=== PATIENT | male | born 1955 | race Caucasian/White ===

== ENCOUNTER 2019-07-11 03:29 | Emergency (ER) | payer OTHER ==
[~2019-07-11] VITALS: Ht 180.3 cm; Wt 87.1 kg
[2019-07-11] MEDS ORDERED: METO50 PO (03:48)
[2019-07-11] MEDS ORDERED: CENTRUM SILVER1 EAC2 PO (03:49)
[2019-07-11] MEDS ORDERED: ASPIR 8181 MG PO (03:49)
[2019-07-11] MEDS ORDERED: Cleocin HCl300 MG PO (04:18)
[2019-07-11] MEDS ORDERED: Percocet 5-3251 EACH PO (04:18)
[2019-07-11] MEDS ORDERED: Prednisone20 MG PO (04:18)
== END 2019-07-11 04:30 | disposition home or self-care (01) ==
LOC: ER 03:29
DX: L03.211 Cellulitis of face (principal); I10 Essential (primary) hypertension; F17.210 Nicotine dependence, cigarettes, uncomplicated; Z79.899 Other long term (current) drug therapy; Z79.82 Long term (current) use of aspirin
CPT/HCPCS: 99283; A9270; J1100

== ENCOUNTER 2022-05-11 10:23 | Emergency (ER) | payer OTHER ==
[~2022-05-11] VITALS: Ht 180.3 cm; Wt 99.8 kg
[~2022-05-11 10:23] MED LIST: 1/2 NS 250ml250 ML; ACET325 PO; ALBU90OI INH; ANEFRIN; ASPIR 8181 MG PO; ATOR40TA PO; Amiodarone HCl200 MG PO; CHLO25B PO; Cleocin HCl300 MG PO; DILT180 PO; Flonase 0.05% N16 GM; MELATONIN5 M1 PO; METO50 PO; METO50ER PO; MULTI VITAMIN1 EACH PO; NICO21TP TOP; NITROGLYCERIN0.4 M3 SL; PANT40 PO; Percocet 5-3251 EACH PO; Prednisone20 MG PO; Prinivil10 MG PO; STIOLTO RESPIMAT4 G1 INH; TIOT18 INH; XARELTO20 MG PO
[2022-05-11 11:41] LABS: BASOPHILS ABSOLUTE AUTO 0.06 K/mm3 (0.00-0.23); BASOPHILS PERCENT AUTO 1 % (0-2); EOSINOPHILS ABSOLUTE AUTO 0.02 K/mm3 (0.00-0.68); EOSINOPHILS PERCENT AUTO 0 % (0-6); Hemoglobin 14.3 g/dL (13.5-17.5); IMMATURE GRAN ABSOLUTE AUTO 0.02 K/mm3 (0.00-0.10); IMMATURE GRAN PERCENT AUTO 0 % (0-1); LYMPHOCYTES ABSOLUTE AUTO 0.91 K/mm3 (0.84-5.20); LYMPHOCYTES PERCENT AUTO 16 % (21-46); MONOCYTES ABSOLUTE AUTO 0.51 K/mm3 (0.16-1.47); MONOCYTES PERCENT AUTO 9 % (4-13); Mean Corpuscular HGB 35.4 pg (26.0-34.0); Mean Corpuscular HGB Conc 34.9 g/dL (31.5-36.5); Mean Corpuscular Volume 102 fL (80-100); Mean Platelet Volume 10.4 fL (9.1-12.4); NEUTROPHILS ABSOLUTE AUTO 4.13 K/mm3 (1.96-9.15); NEUTROPHILS PERCENT AUTO 73 % (41-73); Platelet Count 165 K/mm3 (150-400); RDW Coefficient Variation 14.8 % (11.7-14.2); RDW Standard Deviation 55.8 fL (35.1-46.3); Red Blood Cell Count 4.04 M/mm3 (4.30-5.90); White Blood Cell Count 5.65 K/mm3 (4.00-11.30)
[2022-05-11 12:10] LABS: Albumin, Blood 3.4 g/dL (3.4-5.0); Albumin/Globulin Ratio 0.9 (0.8-1.8); Bilirubin, Total 0.9 mg/dL (0.1-1.0); Calcium, Blood 8.5 mg/dL (8.5-10.1); Creatinine, Blood 0.75 mg/dL (0.60-1.20); Globulin, Blood 3.6 g/dL (2.2-4.0); Potassium, Blood 3.5 mmol/L (3.5-5.5)
[2022-05-11 12:40] LABS: Influenza A, PCR NEGATIVE (NEGATIVE); Influenza B, PCR NEGATIVE (NEGATIVE); Resp Syncytial Virus, PCR NEGATIVE (NEGATIVE); SARS-Cov-2 (COVID-19) PCR, MMC NEGATIVE (NEGATIVE)
== END 2022-05-11 13:13 | disposition home or self-care (01) ==
LOC: ER 10:23
PROVIDERS: Emergency Medicine
DX: R19.7 Diarrhea, unspecified (principal); E86.1 Hypovolemia; I10 Essential (primary) hypertension; J44.9 Chronic obstructive pulmonary disease, unspecified; I48.91 Unspecified atrial fibrillation; I25.10 Atherosclerotic heart disease of native coronary artery without angina pectoris; I25.2 Old myocardial infarction; F17.210 Nicotine dependence, cigarettes, uncomplicated; Z20.822 Contact with and (suspected) exposure to COVID-19; Z79.899 Other long term (current) drug therapy; Z79.01 Long term (current) use of anticoagulants
CPT/HCPCS: 0241U; 36415; 80053; 83605; 83690; 83735; 85025; 99284; J7030

== ENCOUNTER 2022-10-01 13:49 | Emergency (ER) | payer OTHER ==
[~2022-10-01] VITALS: Ht 180.3 cm; Wt 82.1 kg
[2022-10-01 14:14] LABS: BASOPHILS ABSOLUTE AUTO 0.07 K/mm3 (0.00-0.23); BASOPHILS PERCENT AUTO 1 % (0-2); EOSINOPHILS PERCENT AUTO 2 % (0-6); Hematocrit 39.6 % (37.0-53.0); Hemoglobin 13.5 g/dL (13.5-17.5); IMMATURE GRAN ABSOLUTE AUTO 0.01 K/mm3 (0.00-0.10); IMMATURE GRAN PERCENT AUTO 0 % (0-1); LYMPHOCYTES ABSOLUTE AUTO 3.69 K/mm3 (0.84-5.20); LYMPHOCYTES PERCENT AUTO 40 % (21-46); MONOCYTES ABSOLUTE AUTO 0.61 K/mm3 (0.16-1.47); MONOCYTES PERCENT AUTO 7 % (4-13); Mean Corpuscular HGB Conc 34.1 g/dL (31.5-36.5); Mean Corpuscular Volume 97 fL (80-100); Mean Platelet Volume 9.8 fL (9.1-12.4); NEUTROPHILS ABSOLUTE AUTO 4.68 K/mm3 (1.96-9.15); NEUTROPHILS PERCENT AUTO 51 % (41-73); Platelet Count 298 K/mm3 (150-400); RDW Standard Deviation 53.7 fL (35.1-46.3); Red Blood Cell Count 4.09 M/mm3 (4.30-5.90); White Blood Cell Count 9.26 K/mm3 (4.00-11.30)
[2022-10-01 14:37] LABS: Albumin, Blood 3.2 g/dL (3.4-5.0); Albumin/Globulin Ratio 0.9 (0.8-1.8); Bilirubin, Total 0.4 mg/dL (0.1-1.0); Bun/Creatinine Ratio 7.1 (12.0-20.0); Calcium, Blood 8.6 mg/dL (8.5-10.1); Creatinine, Blood 0.7 mg/dL (0.60-1.20); Globulin, Blood 3.6 g/dL (2.2-4.0); Potassium, Blood 4.1 mmol/L (3.5-5.5); Total Protein, Blood 6.8 g/dL (6.4-8.2)
[2022-10-01] MEDS ORDERED: PRED20 PO (14:43)
== END 2022-10-01 14:55 | disposition home or self-care (01) ==
LOC: ER 13:49
PROVIDERS: Emergency Medicine
DX: J44.1 Chronic obstructive pulmonary disease with (acute) exacerbation (principal); I10 Essential (primary) hypertension; F17.210 Nicotine dependence, cigarettes, uncomplicated
CPT/HCPCS: 71046; 80053; 85025; 93005; 93010; 99284-25; J7512

== ENCOUNTER 2022-10-12 03:51 | Emergency (ER) | payer OTHER ==
[~2022-10-12] VITALS: Ht 177.8 cm; Wt 81.7 kg
[~2022-10-12 03:51] MED LIST changes: +PRED20 PO
[2022-10-12 04:06] LABS: BASOPHILS ABSOLUTE AUTO 0.06 K/mm3 (0.00-0.23); BASOPHILS PERCENT AUTO 1 % (0-2); EOSINOPHILS ABSOLUTE AUTO 0.27 K/mm3 (0.00-0.68); EOSINOPHILS PERCENT AUTO 5 % (0-6); IMMATURE GRAN PERCENT AUTO 0 % (0-1); LYMPHOCYTES ABSOLUTE AUTO 1.94 K/mm3 (0.84-5.20); LYMPHOCYTES PERCENT AUTO 34 % (21-46); MONOCYTES ABSOLUTE AUTO 0.71 K/mm3 (0.16-1.47); MONOCYTES PERCENT AUTO 13 % (4-13); Mean Corpuscular HGB 33.2 pg (26.0-34.0); Mean Corpuscular HGB Conc 35.9 g/dL (31.5-36.5); Mean Corpuscular Volume 92 fL (80-100); Mean Platelet Volume 12.1 fL (9.1-12.4); NEUTROPHILS ABSOLUTE AUTO 2.72 K/mm3 (1.96-9.15); NEUTROPHILS PERCENT AUTO 48 % (41-73); Platelet Count 350 K/mm3 (150-400); RDW Coefficient Variation 16.7 % (11.7-14.2); RDW Standard Deviation 56.2 fL (35.1-46.3); Red Blood Cell Count 3.68 M/mm3 (4.30-5.90)
[2022-10-12 04:44] LABS: Hemoglobin 12.2 g/dL (13.5-17.5)
[2022-10-12] MEDS ORDERED: Prednisone20 MG PO (06:02)
[2022-10-12] MEDS ORDERED: ALBU90OI INH (06:02)
[2022-10-12 06:11] LABS: Albumin, Blood 3.4 g/dL (3.4-5.0); Albumin/Globulin Ratio 0.9 (0.8-1.8); Bilirubin, Total 0.8 mg/dL (0.1-1.0); Bun/Creatinine Ratio 10.4 (12.0-20.0); Calcium, Blood 8.3 mg/dL (8.5-10.1); Creatinine, Blood 0.77 mg/dL (0.60-1.20); Globulin, Blood 3.6 g/dL (2.2-4.0); Potassium, Blood 4.1 mmol/L (3.5-5.5)
== END 2022-10-12 08:21 | disposition home or self-care (01) ==
LOC: ER 03:51
PROVIDERS: Emergency Medicine
DX: J44.1 Chronic obstructive pulmonary disease with (acute) exacerbation (principal); I10 Essential (primary) hypertension; I25.2 Old myocardial infarction; I25.10 Atherosclerotic heart disease of native coronary artery without angina pectoris; F17.210 Nicotine dependence, cigarettes, uncomplicated; Z79.899 Other long term (current) drug therapy; Z79.02 Long term (current) use of antithrombotics/antiplatelets; Z79.52 Long term (current) use of systemic steroids
CPT/HCPCS: 36415; 71045; 80053; 83605; 83880; 84484; 85025; 93005; 93010; 94640; 94664; 96374; 96375; 99285-25; J2405; J2930

== ENCOUNTER 2022-10-12 15:29 | Emergency (ER) | payer OTHER ==
[~2022-10-12] VITALS: Ht 177.8 cm; Wt 82.1 kg
== END 2022-10-12 17:32 | disposition left against medical advice (07) ==
LOC: ER 15:29
DX: R53.1 Weakness (principal); Z79.52 Long term (current) use of systemic steroids; Z79.899 Other long term (current) drug therapy; Z79.02 Long term (current) use of antithrombotics/antiplatelets; Z53.21 Procedure and treatment not carried out due to patient leaving prior to being seen by health care provider
CPT/HCPCS: 99281

== ENCOUNTER 2022-12-04 18:50 | Emergency (ER) | payer OTHER ==
[~2022-12-04] VITALS: Ht 177.8 cm; Wt 86.2 kg
[2022-12-04 19:34] LABS: Source, Urine Clean Catch
[2022-12-04 19:35] LABS: BASOPHILS ABSOLUTE AUTO 0.09 K/mm3 (0.00-0.23); BASOPHILS PERCENT AUTO 1 % (0-2); EOSINOPHILS ABSOLUTE AUTO 0.05 K/mm3 (0.00-0.68); EOSINOPHILS PERCENT AUTO 1 % (0-6); Hematocrit 41.4 % (37.0-53.0); Hemoglobin 14.5 g/dL (13.5-17.5); IMMATURE GRAN ABSOLUTE AUTO 0.02 K/mm3 (0.00-0.10); IMMATURE GRAN PERCENT AUTO 0 % (0-1); LYMPHOCYTES ABSOLUTE AUTO 1.45 K/mm3 (0.84-5.20); LYMPHOCYTES PERCENT AUTO 22 % (21-46); MONOCYTES PERCENT AUTO 9 % (4-13); Mean Corpuscular HGB 31.8 pg (26.0-34.0); Mean Corpuscular Volume 91 fL (80-100); Mean Platelet Volume 9.4 fL (9.1-12.4); NEUTROPHILS PERCENT AUTO 67 % (41-73); Platelet Count 196 K/mm3 (150-400); RDW Coefficient Variation 20.2 % (11.7-14.2); RDW Standard Deviation 66.4 fL (35.1-46.3); Red Blood Cell Count 4.56 M/mm3 (4.30-5.90); White Blood Cell Count 6.71 K/mm3 (4.00-11.30)
[2022-12-04 19:38] LABS: Appearance, Urine Clear (Clear); Bilirubin, Urine Neg (Neg); Blood, Urine Neg (Neg); Color, Urine Yellow (P-Yellow); Glucose Qualitative, Urine Neg (Neg); Ketones, Urine Neg (Neg); Leukocyte Esterase, Urine Neg (Neg); Nitrite, Urine Neg (Neg); Protein, Urine Neg (Neg); Specific Gravity, Urine 1.005 (1.003-1.022); Urobilinogen, Urine NORM (Normal); pH, Urine 6.5 (5.0-8.0)
[2022-12-04 20:01] LABS: Albumin, Blood 3.5 g/dL (3.4-5.0); Albumin/Globulin Ratio 0.9 (0.8-1.8); Bilirubin, Total 0.6 mg/dL (0.1-1.0); Bun/Creatinine Ratio 12.8 (12.0-20.0); Calcium, Blood 8.5 mg/dL (8.5-10.1); Creatinine, Blood 0.78 mg/dL (0.60-1.20); Globulin, Blood 3.8 g/dL (2.2-4.0); Potassium, Blood 4.9 mmol/L (3.5-5.5); Total Protein, Blood 7.3 g/dL (6.4-8.2)
[2022-12-04 21:09] LABS: Magnesium, Blood 2.1 mg/dL (1.6-2.4)
[2022-12-04 21:53] LABS: Thyroid Stimulating Hormone 1.63 uIU/mL (0.360-4.800)
[2022-12-04 22:14] VITALS: BP 104/79
== END 2022-12-04 22:14 | disposition home or self-care (01) ==
LOC: ER 18:50
PROVIDERS: Student in an Organized Health Care Education/Training Program
DX: R29.898 Other symptoms and signs involving the musculoskeletal system (principal); Z79.899 Other long term (current) drug therapy; Z79.52 Long term (current) use of systemic steroids; J44.9 Chronic obstructive pulmonary disease, unspecified; I10 Essential (primary) hypertension; I48.91 Unspecified atrial fibrillation; I25.10 Atherosclerotic heart disease of native coronary artery without angina pectoris; I25.2 Old myocardial infarction; F17.210 Nicotine dependence, cigarettes, uncomplicated
CPT/HCPCS: 71046; 80053; 81003; 83735; 83880; 84443; 84484; 85025; 93005; 93010; 99285-25

== ENCOUNTER 2023-05-22 23:38 | Emergency (ER) | payer OTHER ==
[~2023-05-22] VITALS: Ht 177.8 cm; Wt 81.7 kg
[~2023-05-22 23:38] MED LIST changes: +B-1100 M1 PO; +EFUDEX40 GM; +FLUOROURACIL 5%; +FOLI1 PO; +FOLIC ACID; +ONDA4ODT SL; +POTCHL20ER PO; +STIOLTO RESPIMAT4 G1; +Triamcinolone A15 G3 TOP
[2023-05-23 00:29] LABS: BASOPHILS ABSOLUTE AUTO 0.08 K/mm3 (0.00-0.23); BASOPHILS PERCENT AUTO 1 % (0-2); EOSINOPHILS ABSOLUTE AUTO 0.01 K/mm3 (0.00-0.68); EOSINOPHILS PERCENT AUTO 0 % (0-6); Hematocrit 39.7 % (37.0-53.0); IMMATURE GRAN ABSOLUTE AUTO 0.02 K/mm3 (0.00-0.10); IMMATURE GRAN PERCENT AUTO 0 % (0-1); LYMPHOCYTES ABSOLUTE AUTO 0.79 K/mm3 (0.84-5.20); LYMPHOCYTES PERCENT AUTO 8 % (21-46); MONOCYTES ABSOLUTE AUTO 0.52 K/mm3 (0.16-1.47); MONOCYTES PERCENT AUTO 6 % (4-13); Mean Corpuscular HGB 34.3 pg (26.0-34.0); Mean Corpuscular HGB Conc 35.3 g/dL (31.5-36.5); Mean Corpuscular Volume 97 fL (80-100); Mean Platelet Volume 10.6 fL (9.1-12.4); NEUTROPHILS ABSOLUTE AUTO 8.08 K/mm3 (1.96-9.15); NEUTROPHILS PERCENT AUTO 85 % (41-73); Platelet Count 220 K/mm3 (150-400); RDW Coefficient Variation 18.5 % (11.7-14.2); RDW Standard Deviation 64.8 fL (35.1-46.3); Red Blood Cell Count 4.08 M/mm3 (4.30-5.90)
[2023-05-23 01:50] LABS: Albumin, Blood 3.1 g/dL (3.4-5.0); Albumin/Globulin Ratio 0.8 (0.8-1.8); Bilirubin, Total 0.9 mg/dL (0.1-1.0); Bun/Creatinine Ratio 6.5 (12.0-20.0); Calcium, Blood 8.5 mg/dL (8.5-10.1); Creatinine, Blood 0.77 mg/dL (0.60-1.20); Globulin, Blood 3.9 g/dL (2.2-4.0); Potassium, Blood 3.8 mmol/L (3.5-5.5)
[2023-05-23] MEDS ORDERED: CHLO25 PO (05:54)
[2023-05-23 06:53] VITALS: BP 141/85
== END 2023-05-23 07:38 | disposition home or self-care (01) ==
LOC: ER 23:38
PROVIDERS: Student in an Organized Health Care Education/Training Program
DX: F10.90 Alcohol use, unspecified, uncomplicated (principal); E86.0 Dehydration; I10 Essential (primary) hypertension; J44.9 Chronic obstructive pulmonary disease, unspecified; I48.91 Unspecified atrial fibrillation; I25.2 Old myocardial infarction; I25.10 Atherosclerotic heart disease of native coronary artery without angina pectoris; F17.210 Nicotine dependence, cigarettes, uncomplicated
CPT/HCPCS: 71046; 71275; 75635; 80053; 83690; 84484; 85025; 93005; 93010; 96361; 96374-59; 99285-25; J2405; J7030; Q9967

== ENCOUNTER 2023-11-15 06:22 | Day surgery (SDC) | payer OTHER ==
[2023-11-15] VITALS (10 sets, daily range): BP systolic 127–164; BP diastolic 61–84
[~2023-11-15] VITALS: Ht 177.8 cm; Wt 83.9 kg
[~2023-11-15 06:22] MED LIST changes: +CHLO25 PO; +ELIQUIS5 M2 PO; +MORP15ER PO
[2023-11-15] MEDS ORDERED: NS 500 ML IV ONE (07:58)
[2023-11-15] MEDS ORDERED: Nitroglycerin 2 MG/20 ML BTL ONE (07:59)
[2023-11-15] MEDS ORDERED: Heparin Sodium 1000 Units/ML 10ML MDV ONE (07:59)
[2023-11-15] MEDS ORDERED: NS 1,000 ML IV ONE ×2 (07:59→08:35)
[2023-11-15] MEDS ORDERED: FentaNYL Citrate 50 MCG/ML 2 ML Injection ONE ×2 (08:34→09:28)
[2023-11-15] MEDS ORDERED: Midazolam HCl 1MG / ML 2ML Vial ONE ×2 (08:34→09:28)
--- NOTE | 2023-11-15 10:57 | NUR ---
pt resting in bed. groin site soft and non-tender per pt. no bleeding noted. pt given water per request
--- NOTE | 2023-11-15 11:58 | NUR ---
PT GIVEN FOOD. PT SITTING UP AT 30 DEGREES. GROIN SITE SOFT AND NON-TENDER. NO BLEEDING NOTED.
--- NOTE | 2023-11-15 12:15 | NUR ---
HOB ELEVATED 30 DEGREES. L GROIN SITE C/D/I SOFT/NONTENDER. NO EVIDENCE OF BLEEDING. VSS ON RA. PATIENT DENYING ANY PAIN. PATIENT TOLERATING PO INTAKE WELL
--- NOTE | 2023-11-15 13:17 | NUR ---
PT BONY VAZQUEZ INSTRUCTIONS AND VERBALIZED UNDERSTANDING. IV OUT. PT CHANGED. GROIN SITE SOFT AND NON-TNEDER. NO BLEEDING NOTED. PT TAKEN TO LBY VIA WC. TO BE TAKEN HOME BY FAMILY.
== END 2023-11-15 14:27 | disposition home or self-care (01) ==
LOC: MHTC 06:22
DX: I70.221 Atherosclerosis of native arteries of extremities with rest pain, right leg (principal); I25.10 Atherosclerotic heart disease of native coronary artery without angina pectoris; I10 Essential (primary) hypertension; E78.5 Hyperlipidemia, unspecified; I48.0 Paroxysmal atrial fibrillation; J44.9 Chronic obstructive pulmonary disease, unspecified; F17.210 Nicotine dependence, cigarettes, uncomplicated; Z79.01 Long term (current) use of anticoagulants; Z79.899 Other long term (current) drug therapy
CPT/HCPCS: 37227; 75716; 75774; 76937; 99152; 99153; C1714; C1725; C1760; C1769; C1874; C1887; C1894; J1644; J2250; J3010; J7030; J7050; Q9967

== ENCOUNTER 2024-02-12 11:08 | Observation (INO) | payer OTHER ==
[~2024-02-12] VITALS: Ht 177.8 cm; Wt 80.7 kg
[~2024-02-12 11:08] MED LIST changes: -FOLIC ACID
[2024-02-12 11:57] LABS: BASOPHILS ABSOLUTE AUTO 0.07 K/mm3 (0.00-0.23); BASOPHILS PERCENT AUTO 1 % (0-2); EOSINOPHILS PERCENT AUTO 0 % (0-6); Hematocrit 35.4 % (37.0-53.0); Hemoglobin 11.9 g/dL (13.5-17.5); IMMATURE GRAN ABSOLUTE AUTO 0.05 K/mm3 (0.00-0.10); IMMATURE GRAN PERCENT AUTO 1 % (0-1); LYMPHOCYTES ABSOLUTE AUTO 0.64 K/mm3 (0.84-5.20); LYMPHOCYTES PERCENT AUTO 6 % (21-46); MONOCYTES ABSOLUTE AUTO 0.58 K/mm3 (0.16-1.47); MONOCYTES PERCENT AUTO 6 % (4-13); Mean Corpuscular HGB Conc 33.6 g/dL (31.5-36.5); Mean Corpuscular Volume 104 fL (80-100); Mean Platelet Volume 9.9 fL (9.1-12.4); NEUTROPHILS ABSOLUTE AUTO 8.68 K/mm3 (1.96-9.15); NEUTROPHILS PERCENT AUTO 87 % (41-73); Platelet Count 248 K/mm3 (150-400); RDW Standard Deviation 95.7 fL (35.1-46.3); White Blood Cell Count 10.02 K/mm3 (4.00-11.30)
[2024-02-12 12:07] LABS: Albumin/Globulin Ratio 0.8 (0.8-1.8); Bun/Creatinine Ratio 6.8 (12.0-20.0); Calcium, Blood 8.2 mg/dL (8.5-10.1); Creatinine, Blood 0.59 mg/dL (0.60-1.20); Globulin, Blood 3.7 g/dL (2.2-4.0); Potassium, Blood 3.8 mmol/L (3.5-5.5); Total Protein, Blood 6.7 g/dL (6.4-8.2)
[2024-02-12 12:11] LABS: International Normalized Ratio 1.04; Prothrombin Time Results 11.1 Sec (9.7-11.5)
[2024-02-12] MEDS ORDERED: NS 1,000 ML IV SCH (12:15)
[2024-02-12] MEDS ORDERED: Pantoprazole Sodium 40 MG Injection IV ONE (12:15)
[2024-02-12] MEDS ORDERED: Pantoprazole Sodium 40 MG in NS 50 ML IV SCH (12:15)
[2024-02-12 16:44] VITALS: BP 141/81
[2024-02-12] MEDS ORDERED: LORazepam 2 MG/ML 1ML Injection IM PRN (17:05)
[2024-02-12] MEDS ORDERED: LORazepam 2 MG/ML 1ML Injection IV PRN (17:05)
[2024-02-12] MEDS ORDERED: Acetaminophen 325 MG TABLET PO PRN (17:10)
[2024-02-12] MEDS ORDERED: LORazepam 1 MG Tab PO PRN (17:10)
[2024-02-12] MEDS ORDERED: ChlordiazePOXIDE 25 MG Cap PO PRN ×2 (17:10)
--- NOTE | 2024-02-12 17:33 | NUR ---
ADMIT PT ADMITTED TO FLOOR. ORIENTED TO ROOM. PT RELAYED HE IS AN ALCOHOLIC AND WILL NEED HELP WITH WITHDRAWL. PT ALSO REQUESTING A NICOTINE PATCH AND TYLENOL. THIS WAS RELAYED TO DR. JENNINGS. PT HAD TWO BMS SINCE ADMIT. BOTH CLEAR AND LOOSE. DR. JENNINGS NOTIFIED AND GI PANEL ORDERED. SAMPLE SENT TO LAB. TELE IN PLACE. PROTONIX GTT RUNNING. PT RESTING IN BED CALL LIGHT IN REACH.
[2024-02-12 17:48] LABS: Hemoglobin 11.7 g/dL (13.5-17.5)
[2024-02-12 19:07] LABS: Adenovirus F 40/41 Not Detected (NOT DETECT); Astrovirus Not Detected (NOT DETECT); Campylobacter Sp Not Detected (NOT DETECT); Cryptosporidium Not Detected (NOT DETECT); Cyclospora Cayetanensis Not Detected (NOT DETECT); E. Coli O157 Not Detected (NOT DETECT); Entamoeba Histolytica Not Detected (NOT DETECT); Enteroaggregative E. coli-EAEC Not Detected (NOT DETECT); Enteropathogenic E. coli-EPEC Not Detected (NOT DETECT); Enterotoxigenic E. coli-ETEC Not Detected (NOT DETECT); Giardia Lamblia Not Detected (NOT DETECT); Norovirus GI/GII Not Detected (NOT DETECT); Plesiomonas Shigelloides Not Detected (NOT DETECT); Rotavirus A Not Detected (NOT DETECT); Salmonella Sp Not Detected (NOT DETECT); Sapovirus Not Detected (NOT DETECT); Shiga Toxin-prod E. coli-STEC Not Detected (NOT DETECT); Shigella/Enteroin E. coli-EIEC Not Detected (NOT DETECT); Vibrio Cholerae Not Detected (NOT DETECT); Vibrio Sp Not Detected (NOT DETECT); Yersinia Enterocolitica Not Detected (NOT DETECT)
[2024-02-12 19:09] VITALS: BP 117/64
[2024-02-12] MEDS ORDERED: Tiotropium Bromide 2.5 MCG/ACT MIST INHAL (10 ACT/4 GM) INH SCH (20:30)
[2024-02-12] MEDS ORDERED: Albuterol 2.5 MG/3 ML VIAL INH PRN (20:30)
[2024-02-12 21:48] LABS: Hematocrit 31.8 % (37.0-53.0); Hemoglobin 10.7 g/dL (13.5-17.5)
[2024-02-13 02:07] VITALS: BP 109/66
--- NOTE | 2024-02-13 02:59 | NUR ---
SHIFT SUMMARY PT. IS A&O X4, ABLE TO MAKE HIS NEEDS KNOWN, COOP WITH CARE. @HS CIWA SCORE OF 7 R/T TREMORS (UE'S), AGITATION, SENSITIVITY TO LIGHTS AND NOISE.PER PREVIOUS SHIFT NURSE REPORT, LAST DRINK OF ALCOHOL WAS 02/12/24.PT.REPORTS CONSUMING 5-6 DRINKS OF WHISKEY DAILY. @0100, CIWA SCORE OF 9 R/T AGITATION, MODERATE TREMORS, SLIGHT ANXIETY, AND SENSITIVITY TO LIGHTS AND NOISE.1GM ATIVAN PO ADMINISTERED ORDERED. PT. USES BEDSIDE COMMODE, MULTIPLE LOOSE STOOLS DURING THIS SHIFT, DARK BROWN, NO COFFEE GROUND APPEARANCE. NO N/V DURING THIS SHIFT. TYLENOL PRN ADMINISTERED ORDERED FOR 4/10 RIGHT LEG PAIN. PROTONIX DRIP INFUSING ORDERED. NOTED NON PRODUCTIVE COUGH, LL'S COARSE PER AUSCULTATION. PT. IS ON RA SAT'S95%. PT DENIES SOB. AGITATION LESS AFTER PO ATIVAN 1MG WAS EFFECTIVE. NO ACUTE EVENTS/DISTRESS DURING THIS SHIFT. WILL HANDOFF TO THE INCOMING SHIFT NURSE.CALL LIGHT IN REACH.
[2024-02-13 04:36] LABS: Hemoglobin 10.8 g/dL (13.5-17.5)
[2024-02-13 07:57] VITALS: BP 108/69
[2024-02-13] MEDS ORDERED: Thiamine HCl 100 MG in NS 50 ML IV SCH (09:00)
[2024-02-13] MEDS ORDERED: Folic Acid 1 MG in NS 50 ML IV SCH (09:00)
[2024-02-13] MEDS ORDERED: Nicotine 21 MG PATCH TOP SCH (09:00)
[2024-02-13 10:11] LABS: BASOPHILS ABSOLUTE AUTO 0.05 K/mm3 (0.00-0.23); BASOPHILS PERCENT AUTO 1 % (0-2); EOSINOPHILS ABSOLUTE AUTO 0.17 K/mm3 (0.00-0.68); EOSINOPHILS PERCENT AUTO 2 % (0-6); Hematocrit 31.6 % (37.0-53.0); Hemoglobin 10.6 g/dL (13.5-17.5); IMMATURE GRAN ABSOLUTE AUTO 0.02 K/mm3 (0.00-0.10); IMMATURE GRAN PERCENT AUTO 0 % (0-1); LYMPHOCYTES ABSOLUTE AUTO 0.91 K/mm3 (0.84-5.20); LYMPHOCYTES PERCENT AUTO 9 % (21-46); MONOCYTES ABSOLUTE AUTO 0.53 K/mm3 (0.16-1.47); MONOCYTES PERCENT AUTO 6 % (4-13); Mean Corpuscular HGB 35.6 pg (26.0-34.0); Mean Corpuscular HGB Conc 33.5 g/dL (31.5-36.5); Mean Corpuscular Volume 106 fL (80-100); Mean Platelet Volume 10.1 fL (9.1-12.4); NEUTROPHILS ABSOLUTE AUTO 7.99 K/mm3 (1.96-9.15); NEUTROPHILS PERCENT AUTO 83 % (41-73); Platelet Count 197 K/mm3 (150-400); RDW Coefficient Variation 25.2 % (11.7-14.2); RDW Standard Deviation 94.7 fL (35.1-46.3); Red Blood Cell Count 2.98 M/mm3 (4.30-5.90); White Blood Cell Count 9.67 K/mm3 (4.00-11.30)
[2024-02-13 10:29] LABS: Bun/Creatinine Ratio 4.4 (12.0-20.0); Calcium, Blood 7.8 mg/dL (8.5-10.1); Creatinine, Blood 0.68 mg/dL (0.60-1.20); Potassium, Blood 3.3 mmol/L (3.5-5.5)
[2024-02-13 15:27] VITALS: BP 134/75
--- NOTE | 2024-02-13 17:37 | NUR ---
PATIENT D/C'D TO HOME WITH FAMILY. D/C INSTRUCTIONS AND EDUCATION DISCUSSED WITH PATIENT AND COPY PROVIDED. NO NEW MEDICATIONS ORDERED. HARD SCRIPT GIVEN FOR H/H ON 02/14. PATIENT [facility] FOLLOW UP WITH [facility] ADVISED. DENIES ANY FURTHER QUESTIONS OR CONCERNS.
[2024-02-21] MEDS ORDERED: ELIQUIS5 M2 PO (09:00)
== END 2024-02-13 17:38 | disposition home or self-care (01) ==
LOC: ER 11:08 → MEDS 11:09
PROVIDERS: Emergency Medicine; ADMIT Family Medicine
DX: K92.2 Gastrointestinal hemorrhage, unspecified (principal); F10.90 Alcohol use, unspecified, uncomplicated; F43.10 Post-traumatic stress disorder, unspecified; J44.9 Chronic obstructive pulmonary disease, unspecified; I25.2 Old myocardial infarction; I25.10 Atherosclerotic heart disease of native coronary artery without angina pectoris; I10 Essential (primary) hypertension; I48.91 Unspecified atrial fibrillation; Z79.01 Long term (current) use of anticoagulants; Z79.899 Other long term (current) drug therapy
CPT/HCPCS: 36415; 80048; 80053; 82607; 82746; 85014; 85018; 85025; 85610; 85730; 86850; 86900; 86901; 87507; 93005; 93010; 94640; 94664; 94760; 96361; 96365; 96366; 96367; 96375; 96376; 99285-25; A9270; C9113; G0378; J3411; J7030

== ENCOUNTER 2024-02-17 18:56 | Emergency (ER) | payer OTHER ==
[~2024-02-17] VITALS: Ht 177.8 cm; Wt 79.4 kg
[2024-02-17] MEDS ORDERED: Lactated Ringer's 1,000 ML IV ONE (19:25)
[2024-02-17] MEDS ORDERED: Ondansetron HCl 2 MG / ML 2ML Vial IV ONE (19:25)
[2024-02-17] MEDS ORDERED: MethylPREDNISolone Sod Succ 125 MG Vial IV ONE (19:25)
[2024-02-17] MEDS ORDERED: Ipratropium/Albuterol SulF 2.5-0.5MG/3 ML Amp INH ONE (19:25)
[2024-02-17 19:52] LABS: BASOPHILS ABSOLUTE AUTO 0.04 K/mm3 (0.00-0.23); BASOPHILS PERCENT AUTO 0 % (0-2); EOSINOPHILS ABSOLUTE AUTO 0.02 K/mm3 (0.00-0.68); EOSINOPHILS PERCENT AUTO 0 % (0-6); Hematocrit 36.2 % (37.0-53.0); Hemoglobin 12.3 g/dL (13.5-17.5); IMMATURE GRAN PERCENT AUTO 1 % (0-1); LYMPHOCYTES ABSOLUTE AUTO 0.94 K/mm3 (0.84-5.20); LYMPHOCYTES PERCENT AUTO 9 % (21-46); MONOCYTES ABSOLUTE AUTO 0.85 K/mm3 (0.16-1.47); MONOCYTES PERCENT AUTO 8 % (4-13); Mean Corpuscular HGB 35.5 pg (26.0-34.0); Mean Corpuscular Volume 105 fL (80-100); NEUTROPHILS ABSOLUTE AUTO 9.01 K/mm3 (1.96-9.15); NEUTROPHILS PERCENT AUTO 82 % (41-73); RDW Coefficient Variation 24.1 % (11.7-14.2); RDW Standard Deviation 92.5 fL (35.1-46.3); Red Blood Cell Count 3.46 M/mm3 (4.30-5.90); White Blood Cell Count 10.96 K/mm3 (4.00-11.30)
[2024-02-17 20:04] LABS: Platelet Count 235 K/mm3 (150-400)
[2024-02-17 20:06] LABS: Alanine Aminotransfer (ALT/SGP 67 U/L (12-78); Albumin, Blood 2.9 g/dL (3.4-5.0); Albumin/Globulin Ratio 0.7 (0.8-1.8); Alk Phos 223 U/L (50-136); Anion Gap 13 mmol/L (3-11); Aspartate Aminotrans (AST/SGOT 99 U/L (12-37); Bilirubin, Total 0.9 mg/dL (0.1-1.0); Blood Urea Nitrogen 3 mg/dL (8-24); Bun/Creatinine Ratio 5.4 (12.0-20.0); CO2, Blood 24 mmol/L (21-32); Chloride, Blood 104 mmol/L (98-108); Creatinine, Blood 0.56 mg/dL (0.60-1.20); Globulin, Blood 4.1 g/dL (2.2-4.0); Glomerular Filtration Rate 107 (60-); Glucose, Blood 126 mg/dL (70-99); Sodium, Blood 136 mmol/L (136-145)
[2024-02-17 20:14] LABS: Influenza A, PCR NEGATIVE (NEGATIVE); Influenza B, PCR NEGATIVE (NEGATIVE); Resp Syncytial Virus, PCR NEGATIVE (NEGATIVE); SARS-Cov-2 (COVID-19) PCR, MMC NEGATIVE (NEGATIVE)
[2024-02-17 20:22] LABS: Ethanol (Alcohol), Blood, Med <3 mg/dL; Magnesium, Blood 1.7 mg/dL (1.6-2.4)
[2024-02-17 22:30] VITALS: BP 134/74
[2024-02-17] MEDS ORDERED: AZIT250 PO (22:59)
[2024-02-17] MEDS ORDERED: PROM25 PO (22:59)
[2024-02-17] MEDS ORDERED: METPRE4DP PO (22:59)
[2024-02-17] MEDS ORDERED: RX Prepack Albuterol 1 PREPACK/6.7 GM INH UD ONE (23:00)
[2024-02-17] MEDS ORDERED: Azithromycin 250 MG Tab PO ONE (23:00)
== END 2024-02-17 23:35 | disposition home or self-care (01) ==
LOC: ER 18:56
PROVIDERS: Emergency Medicine
DX: J44.1 Chronic obstructive pulmonary disease with (acute) exacerbation (principal); J20.9 Acute bronchitis, unspecified; J44.0 Chronic obstructive pulmonary disease with (acute) lower respiratory infection; Z11.52 Encounter for screening for COVID-19
CPT/HCPCS: 0241U; 71046; 80053; 83690; 83735; 84484; 85025; 94640; 94664; A9270; J2405; J2919; J7120

== ENCOUNTER 2024-02-21 08:37 | Day surgery (SDC) | payer OTHER ==
[~2024-02-21] VITALS: Ht 177.8 cm; Wt 75.7 kg
[~2024-02-21 08:37] MED LIST changes: +AZIT250 PO; +Balanced Salt Epinephrine Irrigation Solution 500 mL IR SCH; +Lidocaine HCl/Pf 1% 5 ML VIAL XX SCH; +METPRE4DP PO; +Moxifloxacin HCL 0.5 MG/0.1 ML 0.4MLSYR LEFTEYE SCH; +NS 500 ML IV ONE; +PHENYLEPHRINE\\TROPICAMIDE\\TETRACAINE OPHTHALMIC DILATING SOLN LEFTEYE PRN; +PROM25 PO; +Povidone-Iodine 450 DROP/30 ML Solution LEFTEYE SCH; +Triamcinolone Inj Susp 40 MG / ML 1ML Vial INJ SCH
[2024-02-21] MEDS ORDERED: NS 500 ML IV ONE (09:02)
--- NOTE | 2024-02-21 09:23 | NUR ---
02/21/[address] HOLLINS AWARE OF RECENT ER VISIT WITH COPD EXACERBATION AND BRONCHITIS, PT CURRENTLY ON ANTIBIOTICS, ALMOST DONE WITH THEM, STILL HAS A COUGH BUT NO RECENT FEVER.
[2024-02-21] MEDS ORDERED: FentaNYL Citrate 50 MCG/ML 2 ML Injection ONE (09:27)
[2024-02-21] MEDS ORDERED: Midazolam HCl 1MG / ML 2ML Vial ONE (09:27)
[2024-02-21 10:02] VITALS: BP 149/86
== END 2024-02-21 10:15 | disposition home or self-care (01) ==
LOC: ORSCSDS 08:37
PROVIDERS: Ophthalmology
PROC: 08RK3JZ Replacement of Left Lens with Synthetic Substitute, Percutaneous Approach (ICD-10-PCS; principal; 2024-02-21 10:00)
DX: H25.12 Age-related nuclear cataract, left eye (principal); Z96.1 Presence of intraocular lens; I10 Essential (primary) hypertension; I48.91 Unspecified atrial fibrillation; I73.9 Peripheral vascular disease, unspecified; Z79.01 Long term (current) use of anticoagulants; Z79.899 Other long term (current) drug therapy; J44.9 Chronic obstructive pulmonary disease, unspecified; K76.0 Fatty (change of) liver, not elsewhere classified
CPT/HCPCS: J2250; J3010; J7040; V2632

== ENCOUNTER 2024-03-12 22:48 | Inpatient (IN) | payer OTHER ==
[~2024-03-12] VITALS: Ht 177.8 cm; Wt 81.5 kg
[~2024-03-12 22:48] MED LIST changes: -Balanced Salt Epinephrine Irrigation Solution 500 mL IR SCH; -Lidocaine HCl/Pf 1% 5 ML VIAL XX SCH; -Moxifloxacin HCL 0.5 MG/0.1 ML 0.4MLSYR LEFTEYE SCH; -NS 500 ML IV ONE; -PHENYLEPHRINE\\TROPICAMIDE\\TETRACAINE OPHTHALMIC DILATING SOLN LEFTEYE PRN; -Povidone-Iodine 450 DROP/30 ML Solution LEFTEYE SCH; -STIOLTO RESPIMAT4 G1; -Triamcinolone Inj Susp 40 MG / ML 1ML Vial INJ SCH
[2024-03-12 23:23] LABS: BASOPHILS ABSOLUTE AUTO 0.04 K/mm3 (0.00-0.23); BASOPHILS PERCENT AUTO 0 % (0-2); EOSINOPHILS PERCENT AUTO 1 % (0-6); Hematocrit 32.5 % (37.0-53.0); Hemoglobin 10.7 g/dL (13.5-17.5); IMMATURE GRAN ABSOLUTE AUTO 0.09 K/mm3 (0.00-0.10); IMMATURE GRAN PERCENT AUTO 1 % (0-1); LYMPHOCYTES ABSOLUTE AUTO 2.09 K/mm3 (0.84-5.20); LYMPHOCYTES PERCENT AUTO 12 % (21-46); MONOCYTES ABSOLUTE AUTO 0.89 K/mm3 (0.16-1.47); MONOCYTES PERCENT AUTO 5 % (4-13); Mean Corpuscular HGB Conc 32.9 g/dL (31.5-36.5); Mean Corpuscular Volume 103 fL (80-100); Mean Platelet Volume 9.3 fL (9.1-12.4); NEUTROPHILS ABSOLUTE AUTO 14.39 K/mm3 (1.96-9.15); NEUTROPHILS PERCENT AUTO 82 % (41-73); NRBC ABSOLUTE 0.04 K/mm3 (0.00-0.02); NRBC Auto 0.2 /100 WBC (0.0-0.2); Platelet Count 286 K/mm3 (150-400); RDW Coefficient Variation 19.9 % (11.7-14.2); RDW Standard Deviation 75.9 fL (35.1-46.3); Red Blood Cell Count 3.15 M/mm3 (4.30-5.90)
[2024-03-12 23:45] LABS: Albumin, Blood 2.9 g/dL (3.4-5.0); Albumin/Globulin Ratio 0.9 (0.8-1.8); Bilirubin, Total 0.4 mg/dL (0.1-1.0); Bun/Creatinine Ratio 12.3 (12.0-20.0); Calcium, Blood 8.1 mg/dL (8.5-10.1); Creatinine, Blood 0.65 mg/dL (0.60-1.20); Globulin, Blood 3.3 g/dL (2.2-4.0); Potassium, Blood 3.5 mmol/L (3.5-5.5); Total Protein, Blood 6.2 g/dL (6.4-8.2)
[2024-03-13] MEDS ORDERED: LevoFLOXacin 750 MG/D5W 150ML 150 ML IV ONE (01:45)
[2024-03-13] MEDS ORDERED: Acetaminophen 325 MG TABLET PO PRN (02:40)
[2024-03-13] MEDS ORDERED: LORazepam 2 MG/ML 1ML Injection IV PRN (02:45)
[2024-03-13] MEDS ORDERED: ChlordiazePOXIDE 25 MG Cap PO PRN (02:45)
[2024-03-13] MEDS ORDERED: NS 250 ML IV PRN (03:20)
[2024-03-13 03:56] VITALS: BP 168/83
[2024-03-13] MEDS ORDERED: Nicotine 21 MG PATCH TOP SCH (05:00)
[2024-03-13] MEDS ORDERED: Ipratropium/Albuterol SulF 2.5-0.5MG/3 ML Amp INH SCH (05:05)
[2024-03-13 05:07] LABS: BASOPHILS ABSOLUTE AUTO 0.03 K/mm3 (0.00-0.23); BASOPHILS PERCENT AUTO 0 % (0-2); EOSINOPHILS ABSOLUTE AUTO 0.06 K/mm3 (0.00-0.68); EOSINOPHILS PERCENT AUTO 0 % (0-6); Hematocrit 32.1 % (37.0-53.0); Hemoglobin 10.7 g/dL (13.5-17.5); IMMATURE GRAN ABSOLUTE AUTO 0.06 K/mm3 (0.00-0.10); IMMATURE GRAN PERCENT AUTO 0 % (0-1); LYMPHOCYTES ABSOLUTE AUTO 1.19 K/mm3 (0.84-5.20); LYMPHOCYTES PERCENT AUTO 7 % (21-46); MONOCYTES ABSOLUTE AUTO 0.73 K/mm3 (0.16-1.47); MONOCYTES PERCENT AUTO 4 % (4-13); Mean Corpuscular HGB 33.5 pg (26.0-34.0); Mean Corpuscular HGB Conc 33.3 g/dL (31.5-36.5); Mean Corpuscular Volume 101 fL (80-100); Mean Platelet Volume 10.1 fL (9.1-12.4); NEUTROPHILS ABSOLUTE AUTO 15.13 K/mm3 (1.96-9.15); NEUTROPHILS PERCENT AUTO 88 % (41-73); NRBC ABSOLUTE 0.02 K/mm3 (0.00-0.02); NRBC Auto 0.1 /100 WBC (0.0-0.2); Platelet Count 286 K/mm3 (150-400); RDW Coefficient Variation 19.2 % (11.7-14.2); RDW Standard Deviation 72.7 fL (35.1-46.3); Red Blood Cell Count 3.19 M/mm3 (4.30-5.90)
[2024-03-13 05:23] LABS: Magnesium, Blood 1.9 mg/dL (1.6-2.4)
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
[2024-03-13 05:52] LABS: Albumin/Globulin Ratio 0.9 (0.8-1.8); Bilirubin, Total 0.7 mg/dL (0.1-1.0); Bun/Creatinine Ratio 12.3 (12.0-20.0); Creatinine, Blood 0.57 mg/dL (0.60-1.20); Globulin, Blood 3.3 g/dL (2.2-4.0); Potassium, Blood 3.4 mmol/L (3.5-5.5); Total Protein, Blood 6.3 g/dL (6.4-8.2)
[2024-03-13 06:26] LABS: Thyroid Stimulating Hormone 1.01 uIU/mL (0.360-4.800)
[2024-03-13 07:04] VITALS: BP 143/74
[2024-03-13] MEDS ORDERED: MethylPREDNISolone Sod Succ 125 MG Vial IV SCH (08:00)
[2024-03-13] MEDS ORDERED: Potassium Chloride 20 MEQ TabCR PO ONE ×2 (08:35→11:00)
[2024-03-13] MEDS ORDERED: Lactobacil 2-S.Thermo-Bifido 1 1 Cap PO SCH (09:00)
[2024-03-13] MEDS ORDERED: Azithromycin 250 MG Tab PO SCH (09:00)
[2024-03-13] MEDS ORDERED: Enoxaparin 40 MG/0.4 ML SYR SC SCH (09:00)
[2024-03-13] MEDS ORDERED: CefTRIAXone Sodium 1,000 MG in NS 100 ML IV SCH (09:00)
[2024-03-13] MEDS ORDERED: Folic Acid 1 MG in NS 50 ML IV SCH (09:00)
[2024-03-13] MEDS ORDERED: Thiamine HCl 100 MG in NS 50 ML IV SCH (09:00)
[2024-03-13] MEDS ORDERED: Melatonin 5 MG Tablet PO PRN (13:35)
[2024-03-13] MEDS ORDERED: Potassium Chloride 10 Meq Tablet SA PO ONE (13:50)
[2024-03-13] MEDS ORDERED: Lactated Ringer's 1,000 ML IV SCH ×2 (14:50→14:55)
[2024-03-13 15:22] VITALS: BP 163/95
[2024-03-13] MEDS ORDERED: HydrALAZINE HCl 20 MG / ML 1ML Vial IV PRN (15:45)
[2024-03-13 16:53] VITALS: BP 138/73
[2024-03-13 19:17] VITALS: BP 164/96
--- NOTE | 2024-03-14 02:47 | NUR ---
NOTIFIED BY U MEDICAL DEVICE SALES REPRESENTATIVE THAT PT HD 3 SECOND RUN OF SVT IN 160'S. PT SOUND ASLEEP WHEN CHECKED ON WITH HR IN 90'S. WILL CONTINOU MONITORING VIA TELEMETRY. NO FURTHER ORDERS GIVEN.
[2024-03-14 03:36] VITALS: BP 177/92
[2024-03-14 04:08] VITALS: BP 163/81
[2024-03-14 05:40] LABS: BASOPHILS ABSOLUTE AUTO 0.01 K/mm3 (0.00-0.23); BASOPHILS PERCENT AUTO 0 % (0-2); EOSINOPHILS PERCENT AUTO 0 % (0-6); Hematocrit 31.7 % (37.0-53.0); Hemoglobin 10.3 g/dL (13.5-17.5); IMMATURE GRAN ABSOLUTE AUTO 0.06 K/mm3 (0.00-0.10); IMMATURE GRAN PERCENT AUTO 1 % (0-1); LYMPHOCYTES ABSOLUTE AUTO 0.27 K/mm3 (0.84-5.20); LYMPHOCYTES PERCENT AUTO 2 % (21-46); MONOCYTES ABSOLUTE AUTO 0.17 K/mm3 (0.16-1.47); MONOCYTES PERCENT AUTO 1 % (4-13); Mean Corpuscular HGB 32.9 pg (26.0-34.0); Mean Corpuscular HGB Conc 32.5 g/dL (31.5-36.5); Mean Corpuscular Volume 101 fL (80-100); Mean Platelet Volume 10.3 fL (9.1-12.4); NEUTROPHILS ABSOLUTE AUTO 11.86 K/mm3 (1.96-9.15); NEUTROPHILS PERCENT AUTO 96 % (41-73); Platelet Count 258 K/mm3 (150-400); RDW Coefficient Variation 18.8 % (11.7-14.2); RDW Standard Deviation 71.3 fL (35.1-46.3); Red Blood Cell Count 3.13 M/mm3 (4.30-5.90); White Blood Cell Count 12.37 K/mm3 (4.00-11.30)
[2024-03-14] MEDS ORDERED: Pantoprazole Sodium 40 MG Tab PO SCH (06:00)
[2024-03-14 06:03] LABS: BASOPHILS PERCENT MAN 0 % (0-2); EOSINOPHILS PERCENT MAN 0 % (0-6); LYMPHOCYTES ABSOLUTE MAN 0.12 K/mm3 (0.84-5.20); LYMPHOCYTES PERCENT MAN 1 % (21-46); MONOCYTES ABSOLUTE MAN 0.37 K/mm3 (0.16-1.47); MONOCYTES PERCENT MAN 3 % (4-13); NEUTROPHILS ABSOLUTE MAN 11.87 K/mm3 (1.96-9.15); SEG NEUTROPHILS PERCENT MAN 96 % (41-73); TOTAL CELLS COUNTED 100
--- NOTE | 2024-03-14 06:08 | NUR ---
SHIFT SUMMARY NOC PT A/O X 4. PLEASANT AND COOPERATIVE WITH CARE. DURING SHIFT ASSESSMENT CIWA SCORE 9 AND LIBRIUM GIVEN. PT HAS SLEPT FOR MAJORITY OF SHIFT. PT ON TELE SINUS TACH IN LOW 100'S. PT DID HAVE AN INCONTINENT EPISODE UPON WAKING AND URINATED ON FLOOR, POSSIBLY DUE TO TAKING BOTH LIBRIUM AND MELATONIN BEFORE BED, PT REORIENTED QUICKLY. PT HAS SECOND BAG OF LR INFUSING @ 100 ML/HR. DRESSING ON CANDICE C/D/I. PT CURRENTLY RESTING WITH BED ALARM ON FOR SAFETY, BED IN LOWEST POSITION, AND CALL LIGHT WITHIN REACH.
[2024-03-14 06:15] LABS: Albumin, Blood 2.6 g/dL (3.4-5.0); Albumin/Globulin Ratio 0.7 (0.8-1.8); Bilirubin, Total 0.5 mg/dL (0.1-1.0); Bun/Creatinine Ratio 13.9 (12.0-20.0); Calcium, Blood 8.5 mg/dL (8.5-10.1); Creatinine, Blood 0.5 mg/dL (0.60-1.20); Globulin, Blood 3.6 g/dL (2.2-4.0); Potassium, Blood 3.5 mmol/L (3.5-5.5); Total Protein, Blood 6.2 g/dL (6.4-8.2)
[2024-03-14 07:32] VITALS: BP 141/81
[2024-03-14] MEDS ORDERED: Diltiazem HCl 180 MG Cap.CD PO SCH (09:00)
[2024-03-14] MEDS ORDERED: Fluticasone 0.05% Nasal Spray SCH (09:00)
[2024-03-14] MEDS ORDERED: Thiamine HCl 100 MG Tab PO SCH (09:00)
[2024-03-14] MEDS ORDERED: Folic Acid 1 MG TAB PO SCH (09:00)
[2024-03-14] MEDS ORDERED: Multivitamins 1 Tab PO SCH (09:00)
[2024-03-14] MEDS ORDERED: Potassium Chloride 20 MEQ TabCR PO SCH (09:00)
--- NOTE | 2024-03-14 14:07 | NUR ---
PATIENT STILL HAS TREMORS, ANXIOUS,AGITATED, LUNG SOUNDS CRACKLES, COUGH PRODUCTIVE, SOME RUNS OF V-TACH BIGEMINY, LAST FEW SECONDS . PATIENT DENIES, SHORTNESS OF BREATH, CHEST PAIN, AND FATIGUE. GAVE 2 MG OF ATIVAN FOR ANXITY.
[2024-03-14 14:53] VITALS: BP 130/70
[2024-03-14] MEDS ORDERED: ELIQUIS5 M2 PO (17:50)
[2024-03-14] MEDS ORDERED: EZET10 PO (17:50)
[2024-03-14] MEDS ORDERED: ATOR40TA PO (17:50)
--- NOTE | 2024-03-14 18:43 | NUR ---
PATIENT REPORTS NO HALLICUINATIONS, NO TACTILE HALLICUNATION, NO AUDIOTORY OR VISUAL HALLUCINATION. SOME TREMORS NOTED AND SOME AGITATION. ANTIBOTICS GIVEN FOR INFECTION.
[2024-03-14 19:11] VITALS: BP 142/89
--- NOTE | 2024-03-14 19:23 | NUR ---
PATIENT HAS HARSH AUDIBLE LUNG SOUNDS. COARSE CRACKLE TX WITH ANTIBIOTICS. TELEMETRY REPORTED A FIVE SECOND RUN OF PVC WHEN PATIENT WAS WALKING FROM BATHROOM. PATIENT REMAINED IN SINUS TACHY FROM 103-110. PATIENT HAD SOME SLIGHT AGITATION AND MILD TREMORS TODAY. MONITORED THE SUPERVISOR TELEPHONE ANSWERING SERVICE DURING SHIFT AND PATIENT REMAINED STABLE
[2024-03-15 04:04] VITALS: BP 151/84
--- NOTE | 2024-03-15 04:11 | NUR ---
SHIFT SUMMARY PATIENT HAD INCREASE ANXIETY. CIWA PRN CHECK FROM 6 TO 9 WITH TREMORS, PAROXYSMAL SWEATS, AND MAHARAJ. IV ATIVAN 2 MG GIVEN AND LIBRIUM 25 MG. REPORTS 50 MG IS TOO STRONG AND MAKES HIM LETHARGIC. AXOX 4 AND INDEPENDENT W/FWW. DENIES CHEST PAIN, SOB, AND N/V. PIV INTACT. VSS/AFEBRILE. RT IN FOR BREATHING TX. IV SOLU-MEDROL PER EMAR. CALL LIGHT IN REACH. BED IN LOWEST POSITION. WILL CONTINUE TO MONITOR UNTIL DAY SHIFT NURSE ASSUMES CARE.
[2024-03-15 05:10] LABS: BASOPHILS ABSOLUTE AUTO 0.02 K/mm3 (0.00-0.23); BASOPHILS PERCENT AUTO 0 % (0-2); EOSINOPHILS PERCENT AUTO 0 % (0-6); IMMATURE GRAN ABSOLUTE AUTO 0.08 K/mm3 (0.00-0.10); IMMATURE GRAN PERCENT AUTO 1 % (0-1); LYMPHOCYTES ABSOLUTE AUTO 0.41 K/mm3 (0.84-5.20); LYMPHOCYTES PERCENT AUTO 2 % (21-46); MONOCYTES ABSOLUTE AUTO 0.43 K/mm3 (0.16-1.47); MONOCYTES PERCENT AUTO 3 % (4-13); Mean Corpuscular HGB 33.6 pg (26.0-34.0); Mean Corpuscular HGB Conc 33.3 g/dL (31.5-36.5); Mean Corpuscular Volume 101 fL (80-100); Mean Platelet Volume 9.8 fL (9.1-12.4); NEUTROPHILS ABSOLUTE AUTO 16.27 K/mm3 (1.96-9.15); NEUTROPHILS PERCENT AUTO 95 % (41-73); NRBC ABSOLUTE 0.02 K/mm3 (0.00-0.02); NRBC Auto 0.1 /100 WBC (0.0-0.2); Platelet Count 270 K/mm3 (150-400); RDW Coefficient Variation 18.9 % (11.7-14.2); RDW Standard Deviation 69.9 fL (35.1-46.3); Red Blood Cell Count 2.98 M/mm3 (4.30-5.90); White Blood Cell Count 17.21 K/mm3 (4.00-11.30)
[2024-03-15 05:42] LABS: Bun/Creatinine Ratio 15.6 (12.0-20.0); Calcium, Blood 8.7 mg/dL (8.5-10.1); Creatinine, Blood 0.58 mg/dL (0.60-1.20); Potassium, Blood 3.8 mmol/L (3.5-5.5)
--- NOTE | 2024-03-15 05:44 | NUR ---
SOLDERER ELECTRONIC REPORTS 7 BEAT RUN OF V-TACH [address]. PATIENT REPORTS TANGLED UP IN HIS PULSE OX WIRE AND TELE LEADS BEFORE HEADING TO BR. RESTING IN BED. WCTM.
[2024-03-15 07:26] VITALS: BP 145/84
[2024-03-15] MEDS ORDERED: PredniSONE 20 MG Tab PO SCH (09:00)
[2024-03-15] MEDS ORDERED: Ipratropium/Albuterol SulF 2.5-0.5MG/3 ML Amp INH PRN (13:10)
[2024-03-15 15:10] VITALS: BP 131/82
[2024-03-15] MEDS ORDERED: Enoxaparin 100 MG/ML 1ML SYR SC ONE (15:25)
--- NOTE | 2024-03-15 17:58 | NUR ---
VSS, A-Ox4, denies SOB, ambulates independently with walker, denies any pain, on RA. Lungs dimished with rhonchi, heart ST on tele and ocossainaly HR of 150s non-sustained, bowel sounds normative. Pt can make needs known, call arshad in hand, bed in lowest position.
[2024-03-15 19:26] VITALS: BP 142/85
[2024-03-15] MEDS ORDERED: Enoxaparin 80 MG/0.8 ML SYR SC SCH (23:00)
[2024-03-16 00:42] VITALS: BP 157/91
--- NOTE | 2024-03-16 01:32 | NUR ---
VAZQUEZ RN REPORTS PATIENT HAVING ETOH WITHDRAWAL WHILE THIS RN ON LUNCH. REPORTED HR: 160-170 AND 190 PEAK. HX AFIB. CIWA SCORE: 16. ANIMAL HEALTH TECHNICIAN NOTIFIED AND PATIENT RECEIVED IV ATIVAN 2 MG AND LIBRIUM [address] JENNINGS NOTIFIED BY VAZQUEZ RN. TELE MONITOR TAO REPORTS PATIENT NOW CONVERTED BACK TO NSR 94. PATIENT RESTING ON SIDE OF BED WITH A RECHECK OF CIWA SCORE: 8 REPORTING HE COULD GO FOR A STIFF DRINK. WCTM.
--- NOTE | 2024-03-16 01:55 | NUR ---
HOSPITALIST DR JENNINGS NOTIFIED PATIENT CIWA DOWN FROM 16 TO 8 AND CONVERTED BACK TO NSR 94. WCTM.
--- NOTE | 2024-03-16 04:07 | NUR ---
SHIFT SUMMARY PATIENT HAD ETOH WITHDRAWALS WITH A CIWA SCORE OF 16 AND DOWN TO 8 AFTER MEDICATING (SEE NOTE). AXOX 4 AND INDEPENDENT WITH FWW TO BR. ANXIOUS AT TIMES. DENIES CHEST PAIN, SOB, AND N/V. AFEBRILE. MELATONIN 5 MG GIVEN FOR INSOMNIA AND TYLENOL 650 MG FOR MAHARAJ. ABLE TO REST SECOND HALF OF SHIFT. CALL LIGHT IN REACH. BED IN LOWEST POSITION. WILL CONTINUE TO MONITOR UNTIL DAY SHIFT NURSE ASSUMES CARE.
[2024-03-16 06:08] LABS: BASOPHILS ABSOLUTE AUTO 0.01 K/mm3 (0.00-0.23); BASOPHILS PERCENT AUTO 0 % (0-2); EOSINOPHILS ABSOLUTE AUTO 0.01 K/mm3 (0.00-0.68); EOSINOPHILS PERCENT AUTO 0 % (0-6); Hemoglobin 10.2 g/dL (13.5-17.5); IMMATURE GRAN ABSOLUTE AUTO 0.07 K/mm3 (0.00-0.10); IMMATURE GRAN PERCENT AUTO 1 % (0-1); LYMPHOCYTES ABSOLUTE AUTO 1.38 K/mm3 (0.84-5.20); LYMPHOCYTES PERCENT AUTO 11 % (21-46); MONOCYTES ABSOLUTE AUTO 0.92 K/mm3 (0.16-1.47); MONOCYTES PERCENT AUTO 8 % (4-13); Mean Corpuscular HGB 33.2 pg (26.0-34.0); Mean Corpuscular HGB Conc 32.9 g/dL (31.5-36.5); Mean Corpuscular Volume 101 fL (80-100); Mean Platelet Volume 10.5 fL (9.1-12.4); NEUTROPHILS PERCENT AUTO 80 % (41-73); Platelet Count 275 K/mm3 (150-400); RDW Coefficient Variation 18.9 % (11.7-14.2); Red Blood Cell Count 3.07 M/mm3 (4.30-5.90); White Blood Cell Count 12.09 K/mm3 (4.00-11.30)
[2024-03-16 06:36] LABS: Calcium, Blood 8.5 mg/dL (8.5-10.1); Creatinine, Blood 0.53 mg/dL (0.60-1.20); Potassium, Blood 3.5 mmol/L (3.5-5.5)
[2024-03-16 07:21] VITALS: BP 140/78
[2024-03-16] MEDS ORDERED: Aspirin 81 MG Chew PO SCH (09:00)
--- NOTE | 2024-03-16 11:20 | NUR ---
PATIENT RESTING IN BED, NO DISTRESS, CALL LIGHT WITH IN REACH, CLEARLY MAKES NEEDS KNOWN
[2024-03-16 16:19] VITALS: BP 137/85
[2024-03-16] MEDS ORDERED: Ipratropium/Albuterol SulF 2.5-0.5MG/3 ML Amp INH SCH (17:20)
--- NOTE | 2024-03-16 18:30 | NUR ---
NO ACUTE CHANGES, CIWA 7, CLEARLY MAKES NEEDS KNOWN, INDEPEDANT IN ROOM, NO EVENTS ON TELE, MEDICATED WITH 25 MG OF LIBRIUM, STARTED IS AND FLUTTER VALVE. CALL LIGHT WITH IN REACH, WILL RELAY TO PM RN
[2024-03-16] MEDS ORDERED: Albuterol 2.5 MG/3 ML VIAL INH PRN ×2 (18:55→19:00)
[2024-03-16] MEDS ORDERED: Tiotropium Bromide 2.5 MCG/ACT MIST INHAL (10 ACT/4 GM) INH SCH (18:55)
[2024-03-16 19:29] VITALS: BP 141/82
[2024-03-16] MEDS ORDERED: Azithromycin 500 MG in NS 250 ML IV SCH (20:00)
[2024-03-16] MEDS ORDERED: Ezetimibe 10 MG Tab PO SCH (21:00)
[2024-03-16] MEDS ORDERED: Apixaban 5 MG Tab PO SCH (21:00)
[2024-03-16] MEDS ORDERED: Atorvastatin 40 MG Tab PO SCH (21:00)
--- NOTE | 2024-03-17 04:07 | NUR ---
SHIFT SUMMARY PATIENT CONTINUES TO HAVE WITHDRAWALS WITH A CIWA SCORE OF 7 AND NEXT 9 WITH SOME HALLUCINATIONS BUT LESS ANXIETY. LIBRIUM 25 MG GIVEN X TWO. AXOX 4 AND INDEPENDENT IN ROOM. DENIES CHEST PAIN, SOB, AND N/V. VSS/AFEBRILE. REPORTED MODERATE MAHARAJ X ONE AND TYLENOL 650 MG GIVEN PER EMAR. PIV INTACT. IV ABX INFUSED. NO TELEMETRY EVENTS. COOPERATIVE WITH CARE. CALL LIGHT IN REACH. BED IN LOWEST POSITION. WILL CONTINUE TO MONITOR UNTIL DAY SHIFT NURSE ASSUMES CARE.
[2024-03-17 04:52] LABS: Hematocrit 35.4 % (37.0-53.0); Hemoglobin 11.6 g/dL (13.5-17.5)
[2024-03-17 04:54] VITALS: BP 138/78
[2024-03-17 05:10] LABS: Bun/Creatinine Ratio 21.4 (12.0-20.0); Calcium, Blood 8.8 mg/dL (8.5-10.1); Creatinine, Blood 0.61 mg/dL (0.60-1.20); Potassium, Blood 3.7 mmol/L (3.5-5.5)
[2024-03-17 08:07] VITALS: BP 161/89
[2024-03-17] MEDS ORDERED: Azithromycin 500 MG in NS 250 ML IV STA (10:37)
[2024-03-17] MEDS ORDERED: CefTRIAXone Sodium 1,000 MG in NS 100 ML IV SCH (11:00)
[2024-03-17] MEDS ORDERED: AZIT500 PO (11:51)
[2024-03-17] MEDS ORDERED: CEFD300 PO (11:52)
[2024-03-17] MEDS ORDERED: Prednisone10 MG PO (11:53)
[2024-03-17] MEDS ORDERED: VISBIOME 112.51 EACH PO (11:53)
[2024-03-17] MEDS ORDERED: B-1100 M1 PO (11:54)
--- NOTE | 2024-03-17 13:48 | NUR ---
DISCHARGE NOTE PT DISCHARGED HOME AT 1345. PT PROVIDED W/ VERBAL AND WRITTEN INSTRUCTIONS REPORTED UNDERSTANDING. PT A&OX4, VSS, AMB IND, TOLERATING PO, VOIDING, AND DENIED PAIN. BELONGINGS WERE RETURNED AND PT ESCOURTED OUT VIA W/B MICHAEL HUBER.
== END 2024-03-17 13:46 | disposition home or self-care (01) | DRG 871 ==
LOC: ER 22:48 → MEDS 22:49
PROVIDERS: Emergency Medicine; Family Medicine; Family Medicine Adult Medicine; Internal Medicine; ADMIT Student in an Organized Health Care Education/Training Program
DX: A41.9 Sepsis, unspecified organism (principal); J18.9 Pneumonia, unspecified organism; I47.20 Ventricular tachycardia, unspecified; J44.1 Chronic obstructive pulmonary disease with (acute) exacerbation; F10.239 Alcohol dependence with withdrawal, unspecified; E87.20 Acidosis, unspecified; J44.0 Chronic obstructive pulmonary disease with (acute) lower respiratory infection; I47.10 Supraventricular tachycardia, unspecified; R65.20 Severe sepsis without septic shock; E87.6 Hypokalemia; I44.0 Atrioventricular block, first degree; I25.10 Atherosclerotic heart disease of native coronary artery without angina pectoris; I73.9 Peripheral vascular disease, unspecified; I48.0 Paroxysmal atrial fibrillation; Z95.5 Presence of coronary angioplasty implant and graft; D64.9 Anemia, unspecified; K21.9 Gastro-esophageal reflux disease without esophagitis; K70.10 Alcoholic hepatitis without ascites; Z79.01 Long term (current) use of anticoagulants; I25.2 Old myocardial infarction; F43.10 Post-traumatic stress disorder, unspecified; M54.12 Radiculopathy, cervical region; J44.9 Chronic obstructive pulmonary disease, unspecified; Z90.49 Acquired absence of other specified parts of digestive tract; Z98.890 Other specified postprocedural states; Z79.2 Long term (current) use of antibiotics; Z79.899 Other long term (current) drug therapy
CPT/HCPCS: 36415; 71046; 80048; 80053; 83605; 83735; 83880; 84443; 84484; 85014; 85018; 85025; 87040; 92610; 93005; 93010; 93306; 94640; 94664; 94760; 94762; 96361; 96365; 96366; 96372; 96375; 96376; 97110; 97116; 97162; 97530; 99285-25; A9270; G0378; J0360; J0456; J0696; J1650; J1956; J2060; J2919; J3411; J7050; J7120; J7512

== ENCOUNTER 2024-04-05 10:46 | Emergency (ER) | payer OTHER ==
[~2024-04-05] VITALS: Ht 177.8 cm; Wt 79.4 kg
[~2024-04-05 10:46] MED LIST changes: +AZIT500 PO; +CEFD300 PO; +EZET10 PO; +Prednisone10 MG PO; +VISBIOME 112.51 EACH PO
[2024-04-05 11:16] LABS: BASOPHILS ABSOLUTE AUTO 0.05 K/mm3 (0.00-0.23); BASOPHILS PERCENT AUTO 1 % (0-2); EOSINOPHILS ABSOLUTE AUTO 0.23 K/mm3 (0.00-0.68); EOSINOPHILS PERCENT AUTO 3 % (0-6); Hematocrit 32.3 % (37.0-53.0); Hemoglobin 10.7 g/dL (13.5-17.5); IMMATURE GRAN ABSOLUTE AUTO 0.02 K/mm3 (0.00-0.10); IMMATURE GRAN PERCENT AUTO 0 % (0-1); LYMPHOCYTES ABSOLUTE AUTO 1.13 K/mm3 (0.84-5.20); LYMPHOCYTES PERCENT AUTO 16 % (21-46); MONOCYTES ABSOLUTE AUTO 0.65 K/mm3 (0.16-1.47); MONOCYTES PERCENT AUTO 9 % (4-13); Mean Corpuscular HGB 31.2 pg (26.0-34.0); Mean Corpuscular HGB Conc 33.1 g/dL (31.5-36.5); Mean Corpuscular Volume 94 fL (80-100); Mean Platelet Volume 9.3 fL (9.1-12.4); NEUTROPHILS ABSOLUTE AUTO 4.82 K/mm3 (1.96-9.15); NEUTROPHILS PERCENT AUTO 70 % (41-73); Platelet Count 302 K/mm3 (150-400); RDW Coefficient Variation 18.7 % (11.7-14.2); RDW Standard Deviation 65.2 fL (35.1-46.3); Red Blood Cell Count 3.43 M/mm3 (4.30-5.90)
[2024-04-05 11:29] LABS: International Normalized Ratio 1.06; Prothrombin Time Results 11.3 Sec (9.7-11.5)
[2024-04-05 11:36] LABS: Albumin, Blood 3.1 g/dL (3.4-5.0); Albumin/Globulin Ratio 0.9 (0.8-1.8); Bun/Creatinine Ratio 3.2 (12.0-20.0); Calcium, Blood 8.8 mg/dL (8.5-10.1); Creatinine, Blood 0.62 mg/dL (0.60-1.20); Globulin, Blood 3.3 g/dL (2.2-4.0); Potassium, Blood 3.2 mmol/L (3.5-5.5); Total Protein, Blood 6.4 g/dL (6.4-8.2)
[2024-04-05] MEDS ORDERED: Lactated Ringer's 500 ML IV ONE (15:05)
[2024-04-05] MEDS ORDERED: Ipratropium/Albuterol SulF 2.5-0.5MG/3 ML Amp INH ONE (15:05)
[2024-04-05 16:30] VITALS: BP 153/94
[2024-04-05 16:30] LABS: Influenza A, PCR NEGATIVE (NEGATIVE); Influenza B, PCR NEGATIVE (NEGATIVE); Resp Syncytial Virus, PCR NEGATIVE (NEGATIVE); SARS-Cov-2 (COVID-19) PCR, MMC NEGATIVE (NEGATIVE)
[2024-04-05] MEDS ORDERED: PRED20 PO (17:13)
[2024-04-05] MEDS ORDERED: ALBU90OI INH (17:13)
== END 2024-04-05 17:33 | disposition home or self-care (01) ==
LOC: ER 10:46
PROVIDERS: Emergency Medicine; Student in an Organized Health Care Education/Training Program
DX: J44.1 Chronic obstructive pulmonary disease with (acute) exacerbation (principal); E87.6 Hypokalemia; Z79.899 Other long term (current) drug therapy; Z79.52 Long term (current) use of systemic steroids; I10 Essential (primary) hypertension; I48.91 Unspecified atrial fibrillation; I25.2 Old myocardial infarction; F43.10 Post-traumatic stress disorder, unspecified; F17.210 Nicotine dependence, cigarettes, uncomplicated
CPT/HCPCS: 0241U; 70450; 71046; 80053; 83880; 84484; 85025; 85610; 93005; 93010; 94640; 94664; 99285-25; J7120

== ENCOUNTER 2024-05-06 12:24 | Emergency (ER) | payer MEDICARE ==
[~2024-05-06] VITALS: Ht 177.8 cm; Wt 79.4 kg
[2024-05-06] MEDS ORDERED: NS 1,000 ML IV SCH (12:40)
[2024-05-06] MEDS ORDERED: HYDACE10B PO (12:40)
[2024-05-06 13:44] LABS: BASOPHILS ABSOLUTE AUTO 0.03 K/mm3 (0.00-0.23); BASOPHILS PERCENT AUTO 0 % (0-2); EOSINOPHILS ABSOLUTE AUTO 0.02 K/mm3 (0.00-0.68); EOSINOPHILS PERCENT AUTO 0 % (0-6); Hematocrit 34.4 % (37.0-53.0); IMMATURE GRAN ABSOLUTE AUTO 0.06 K/mm3 (0.00-0.10); IMMATURE GRAN PERCENT AUTO 1 % (0-1); LYMPHOCYTES ABSOLUTE AUTO 1.43 K/mm3 (0.84-5.20); LYMPHOCYTES PERCENT AUTO 12 % (21-46); MONOCYTES ABSOLUTE AUTO 0.64 K/mm3 (0.16-1.47); MONOCYTES PERCENT AUTO 5 % (4-13); Mean Corpuscular HGB 29.5 pg (26.0-34.0); Mean Corpuscular Volume 92 fL (80-100); Mean Platelet Volume 8.9 fL (9.1-12.4); NEUTROPHILS ABSOLUTE AUTO 9.57 K/mm3 (1.96-9.15); NEUTROPHILS PERCENT AUTO 81 % (41-73); Platelet Count 273 K/mm3 (150-400); RDW Standard Deviation 72.7 fL (35.1-46.3); Red Blood Cell Count 3.73 M/mm3 (4.30-5.90); White Blood Cell Count 11.75 K/mm3 (4.00-11.30)
[2024-05-06 14:06] LABS: Bun/Creatinine Ratio 12.6 (12.0-20.0); Calcium, Blood 8.3 mg/dL (8.5-10.1); Creatinine, Blood 0.64 mg/dL (0.60-1.20); Magnesium, Blood 1.8 mg/dL (1.6-2.4); Potassium, Blood 3.2 mmol/L (3.5-5.5)
[2024-05-06] MEDS ORDERED: Potassium Chloride 20 MEQ TabCR PO ONE (14:25)
[2024-05-06] MEDS ORDERED: Magnesium Oxide 400 MG Tab PO ONE (14:25)
[2024-05-06 15:20] VITALS: BP 154/85
[2024-05-06] MEDS ORDERED: POTA10T PO (15:20)
== END 2024-05-06 15:33 | disposition home or self-care (01) ==
LOC: ER 12:24
PROVIDERS: Emergency Medicine
DX: R55 Syncope and collapse (principal); I10 Essential (primary) hypertension; J44.9 Chronic obstructive pulmonary disease, unspecified; I48.91 Unspecified atrial fibrillation; I25.10 Atherosclerotic heart disease of native coronary artery without angina pectoris; I25.2 Old myocardial infarction; F17.210 Nicotine dependence, cigarettes, uncomplicated; Z79.899 Other long term (current) drug therapy; Z79.01 Long term (current) use of anticoagulants
CPT/HCPCS: 70450; 71045; 80048; 83735; 85025; 93005; 93010; 96360; 99285-25; A9270; J7030

== ENCOUNTER 2024-08-12 12:16 | Inpatient (IN) | payer OTHER ==
[~2024-08-12] VITALS: Ht 177.8 cm; Wt 82.1 kg
[~2024-08-12 12:16] MED LIST changes: +HYDACE10B PO; +POTA10T PO
[2024-08-12 13:25] LABS: BASOPHILS ABSOLUTE AUTO 0.05 K/mm3 (0.00-0.23); BASOPHILS PERCENT AUTO 0 % (0-2); EOSINOPHILS PERCENT AUTO 0 % (0-6); Hematocrit 31.8 % (37.0-53.0); Hemoglobin 10.5 g/dL (13.5-17.5); IMMATURE GRAN ABSOLUTE AUTO 0.13 K/mm3 (0.00-0.10); IMMATURE GRAN PERCENT AUTO 1 % (0-1); LYMPHOCYTES ABSOLUTE AUTO 0.84 K/mm3 (0.84-5.20); LYMPHOCYTES PERCENT AUTO 3 % (21-46); MONOCYTES ABSOLUTE AUTO 1.73 K/mm3 (0.16-1.47); MONOCYTES PERCENT AUTO 7 % (4-13); Mean Corpuscular HGB 28.7 pg (26.0-34.0); Mean Corpuscular Volume 87 fL (80-100); Mean Platelet Volume 11.4 fL (9.1-12.4); NEUTROPHILS ABSOLUTE AUTO 21.83 K/mm3 (1.96-9.15); NEUTROPHILS PERCENT AUTO 89 % (41-73); Platelet Count 199 K/mm3 (150-400); RDW Coefficient Variation 19.5 % (11.7-14.2); RDW Standard Deviation 59.7 fL (35.1-46.3); Red Blood Cell Count 3.66 M/mm3 (4.30-5.90); White Blood Cell Count 24.58 K/mm3 (4.00-11.30)
[2024-08-12 13:38] LABS: Albumin, Blood 2.1 g/dL (3.4-5.0); Albumin/Globulin Ratio 0.4 (0.8-1.8); Bilirubin, Total 1.2 mg/dL (0.1-1.0); Bun/Creatinine Ratio 8.3 (12.0-20.0); Calcium, Blood 8.5 mg/dL (8.5-10.1); Creatinine, Blood 0.72 mg/dL (0.60-1.20); Potassium, Blood 4.1 mmol/L (3.5-5.5); Total Protein, Blood 7.1 g/dL (6.4-8.2)
[2024-08-12 13:41] LABS: International Normalized Ratio 1.12; Prothrombin Time Results 11.9 Sec (9.7-11.5)
[2024-08-12] MEDS ORDERED: CefTRIAXone Sodium 2,000 MG in NS 100 ML IV ONE (14:55)
[2024-08-12] MEDS ORDERED: FLU VACC TS2024-25(6MOS UP)/PF 45 MCG/0.5 ML SYRINGE IM SCH (15:50)
[2024-08-12] MEDS ORDERED: Bisacodyl 10 MG Supp PR PRN (15:50)
[2024-08-12] MEDS ORDERED: TraZODone HCl 50 MG Tab PO PRN (15:55)
[2024-08-12] MEDS ORDERED: Ondansetron 4 MG TAB PO PRN (15:55)
[2024-08-12] MEDS ORDERED: Magnesium Hydroxide Conc 10 ML UDC PO PRN (15:55)
[2024-08-12] MEDS ORDERED: LORazepam 2 MG/ML 1ML Injection IV PRN ×3 (16:05)
[2024-08-12] MEDS ORDERED: Loperamide HCl 2 MG Cap PO PRN (16:05)
[2024-08-12] MEDS ORDERED: HydrALAZINE HCl 20 MG / ML 1ML Vial IV PRN (16:05)
[2024-08-12] MEDS ORDERED: ChlordiazePOXIDE 25 MG Cap PO PRN ×2 (16:10)
[2024-08-12] MEDS ORDERED: Thiamine HCl 100 MG in NS 50 ML IV SCH (16:14)
[2024-08-12] MEDS ORDERED: NS 250 ML IV PRN (16:50)
[2024-08-12] MEDS ORDERED: Piperacillin/Tazobactam Sod 4.5 GM in NS 100 ML IV SCH (17:00)
[2024-08-12] MEDS ORDERED: Folic Acid 1 MG in NS 50 ML IV SCH (17:00)
[2024-08-12 17:01] LABS: Body Fluid WBC Count 170 /mm3 (0-999)
[2024-08-12 17:14] LABS: Appearance, Body Fluid Clear (Clear); Color, Body Fluid L Yellow (None-Yellow); RBC Count, Body Fluid 2 /mm3 (0-0)
[2024-08-12 17:15] LABS: Glucose, Body Fluid 130 mg/dL
[2024-08-12 17:16] LABS: Albumin, Body Fluid 0.4 g/dL; Lactate Dehydrogenase, Body Fl 66 U/L; Protein, Body Fluid 1.1 g/dL
[2024-08-12] MEDS ORDERED: Albumin (Human) 25gm/100ml 100 ML IV ONE (17:30)
[2024-08-12 17:54] LABS: Total Cell Count, Body Fluid 100
[2024-08-12] MEDS ORDERED: Acetaminophen 325 MG TABLET PO PRN (18:15)
[2024-08-12 18:33] VITALS: BP 145/73
--- NOTE | 2024-08-12 18:39 | NUR ---
ASSUMED CARE OF PT VSS AT BEDSIDE, NO C/O OF PAIN AT TIS MOMENT BUT PT HAS SEVERE TREMORS. IVS INFUSING PER ORDERS AFTER PT CAME BACK FROM [facility], 2850 MLS REMOVED, STATING HE FEELS MUCH BETTER. REPORT GIVEN TO PCU, PT TANSFERTEODORO
--- NOTE | 2024-08-12 18:49 | NUR ---
ARRIVAL TO PCU 10 PT ARRIVED TO PCU 10 AT APPROXIMATELY 1825. PT TRANSFERED FROM ER [facility] TO HOSPITAL BED WITH 1 ASSIST. PT A&Ox4, CALLS AND COMMUNICATES NEEDS APPROPRIATELY, ORIENTED TO CALL LIGHT/UNIT. BP STABLE, SINUS 120'S, DENIES CP/PRESSURE. SpO2> 92% RA, DENIES SOB. PT WITH CONGESTD COUGH. TREMORS PRESENT. PT STATES THAT HE KNOWS HE NEEDS TO STOP DRINKING BUT IS NOT CONFIDENT THAT HE WILL BE ABLE TO STAY SOBER WHEN HE GETS HOME AND IS WORRIED ABOUT GOING THROUGH WITHDRAWAL AGAIN FOR NOTHING. DISCUSSED RESOURCES AND WITHDRAWAL PROCESS WITH PT, PT STATES THAT HE HAS USED [facility] A FEW TIMES AND HE HAS NEVER BEEN ABLE TO STICK TO IT. BED IN LOWEST POSITION, CALL LIGHT IN REACH. WILL REPORT TO ONCOMING RN.
[2024-08-12 20:55] VITALS: BP 115/65
[2024-08-12] MEDS ORDERED: Lactobacil 2-S.Thermo-Bifido 1 1 Cap PO SCH (21:00)
[2024-08-12] MEDS ORDERED: Famotidine 20 MG Tab PO SCH (21:00)
[2024-08-13 00:14] VITALS: BP 114/65
[2024-08-13 00:35] LABS: Source, Urine Clean Catch
[2024-08-13 00:43] LABS: Bilirubin, Urine Neg (Neg); Blood, Urine 1+ (Neg); Glucose Qualitative, Urine Neg (Neg); Ketones, Urine Neg (Neg); Leukocyte Esterase, Urine 1+ (Neg); Nitrite, Urine Neg (Neg); Protein, Urine 1+ (Neg); Specific Gravity, Urine 1.005 (1.003-1.022); Urobilinogen, Urine NORM (Normal)
[2024-08-13 01:08] LABS: Appearance, Urine Clear (Clear); Color, Urine Pale Yellow (P-Yellow)
[2024-08-13 01:09] LABS: Amorphous Light (0-Heavy); Bacteria Mod /hpf; Red Blood Cells, Urine 0-2 /hpf (0-2); Squamous Epithelial Cells Mod /hpf (Few); White Blood Cells, Urine 0-2 /hpf (0-5)
[2024-08-13 03:42] VITALS: BP 106/62
[2024-08-13 04:26] LABS: BASOPHILS ABSOLUTE AUTO 0.04 K/mm3 (0.00-0.23); BASOPHILS PERCENT AUTO 0 % (0-2); EOSINOPHILS ABSOLUTE AUTO 0.08 K/mm3 (0.00-0.68); EOSINOPHILS PERCENT AUTO 1 % (0-6); Hematocrit 27.7 % (37.0-53.0); Hemoglobin 9.2 g/dL (13.5-17.5); IMMATURE GRAN ABSOLUTE AUTO 0.06 K/mm3 (0.00-0.10); IMMATURE GRAN PERCENT AUTO 0 % (0-1); LYMPHOCYTES ABSOLUTE AUTO 1.17 K/mm3 (0.84-5.20); LYMPHOCYTES PERCENT AUTO 8 % (21-46); MONOCYTES ABSOLUTE AUTO 1.49 K/mm3 (0.16-1.47); MONOCYTES PERCENT AUTO 10 % (4-13); Mean Corpuscular HGB 28.6 pg (26.0-34.0); Mean Corpuscular HGB Conc 33.2 g/dL (31.5-36.5); Mean Corpuscular Volume 86 fL (80-100); Mean Platelet Volume 10.8 fL (9.1-12.4); NEUTROPHILS ABSOLUTE AUTO 11.75 K/mm3 (1.96-9.15); NEUTROPHILS PERCENT AUTO 81 % (41-73); Platelet Count 151 K/mm3 (150-400); RDW Coefficient Variation 19.4 % (11.7-14.2); Red Blood Cell Count 3.22 M/mm3 (4.30-5.90); White Blood Cell Count 14.59 K/mm3 (4.00-11.30)
[2024-08-13 04:46] LABS: Albumin, Blood 2.3 g/dL (3.4-5.0); Albumin/Globulin Ratio 0.6 (0.8-1.8); Bilirubin, Total 1.3 mg/dL (0.1-1.0); Bun/Creatinine Ratio 9.9 (12.0-20.0); Calcium, Blood 7.9 mg/dL (8.5-10.1); Creatinine, Blood 0.7 mg/dL (0.60-1.20); Globulin, Blood 3.8 g/dL (2.2-4.0); Magnesium, Blood 1.8 mg/dL (1.6-2.4); Phosphorus, Blood 3.4 mg/dL (2.5-4.9); Potassium, Blood 3.6 mmol/L (3.5-5.5); Total Protein, Blood 6.1 g/dL (6.4-8.2)
--- NOTE | 2024-08-13 05:00 | NUR ---
shift summary. shift has been unremarkable. pt aox4, pleasant, cooperative with care, able to make needs known. has been able to rest comfortably throughout most of shift. bed alarm active for safety although pt has consistently used call light appropriately to request assistance for trasnsfer. CIWAs have been <5 for most of shift, only medicated per CIWA protocol one time early in shift. admission process completed per protocol. urine output consistent and charted appropriately. has been running sinus tach on tele. has maintained adequate saturation on room air. bed locked in lowest position. call light left within reach. continuing to monitor.
[2024-08-13 08:07] VITALS: BP 116/69
[2024-08-13] MEDS ORDERED: Misc. Inhaler INH SCH (10:30)
[2024-08-13] MEDS ORDERED: Albuterol HFA200 ACT/6.7 GM INH INH PRN (10:30)
[2024-08-13 11:51] VITALS: BP 118/76
[2024-08-13] MEDS ORDERED: Nicotine 21 MG PATCH TOP SCH (13:20)
[2024-08-13] MEDS ORDERED: Protein Supplement 30 ML UD PO SCH (14:00)
[2024-08-13 15:27] LABS: C DIFFICILE DNA POSITIVE (Negative)
[2024-08-13 16:28] VITALS: BP 117/74
[2024-08-13] MEDS ORDERED: Vancomycin HCl 250 MG Cap PO SCH (18:00)
--- NOTE | 2024-08-13 18:47 | NUR ---
SHIFT SUMMERY: NEURO: PT A&OX4. FOLLOWS COMMANDS AND MAKES NEEDS KNOWN TO STAFF. PT RECIEVED ATIVAN THIS AM FOR A CIWA SCORE OF 8 BUT HAS NOT NEEDED ANYTHING ELSE DURING THIS SHIFT. CARDIAC: NO COMPLAINS OF CP. VSS. RESP: NO COMPLAINS OF SOB. REMAINS ON RA. GI/: PT TESTED POSITIVE FOR CDIFF. ABX STARTED. PT HAS HAD MULTIPLE EPISODES OF DIARRHEA TODAY. ABD REMAINS DISTENDED AND FIRM. NO OTHER SIGNIFICANT EVENTS HAPPENED DURING THIS SHIFT. WILL CONTINUE TO CARE FOR PT TILL END OF SHIFT.
[2024-08-13 19:51] VITALS: BP 125/73
[2024-08-13] MEDS ORDERED: Apixaban 5 MG Tab PO SCH (21:00)
[2024-08-13] MEDS ORDERED: Atorvastatin 40 MG Tab PO SCH (21:00)
[2024-08-14] MEDS ORDERED: NS 250 ML IV PRN (00:15)
[2024-08-14 00:27] VITALS: BP 119/67
[2024-08-14 03:30] VITALS: BP 110/89
[2024-08-14 05:01] LABS: Albumin, Blood 2.1 g/dL (3.4-5.0); Albumin/Globulin Ratio 0.5 (0.8-1.8); Bilirubin, Total 1.3 mg/dL (0.1-1.0); Bun/Creatinine Ratio 10.9 (12.0-20.0); Calcium, Blood 7.9 mg/dL (8.5-10.1); Creatinine, Blood 0.73 mg/dL (0.60-1.20); Potassium, Blood 2.7 mmol/L (3.5-5.5); Total Protein, Blood 6.1 g/dL (6.4-8.2)
--- NOTE | 2024-08-14 05:22 | NUR ---
SHIFT SUMMARY. SHIFT HAS BEEN UNREMARKABLE. PT HAS BEEN AOX4, PLEASANT, COOPERATIVE WITH CARE, CALLS APPROPRIATELY FOR ASSISTANCE. HAS BEEN ABLE TO REST THROUGHOUT MOST OF SHIFT. FREQUENT BMs THIS SHIFT, STEADY SBA TRANSFER TO BATHROOM. CIWAs COMPLETED Q4 AND PRN, THUS FAR <=8 HAVE ONLY MEDICATED ONCE PER CIWA PROTOCOL. PT HAS DENIED PAIN THROUGHOUT SHIFT OUTSIDE OF MILD HEADACHE AT TIMES. CONTINUES TO RUN SINUS TACH ON TELE, OTHERWISE VITALS HAVE BEEN STABLE. BED LOCKED IN LOWEST POSITION. CALL LIGHT LEFT WITHIN REACH. CONTINUING TO MONITOR
--- NOTE | 2024-08-14 05:29 | NUR ---
SPOKE WITH DR. VIZCAINO. POTASSIUM THIS MORNING CAME BACK AT 2.7. DR. VIZCAINO ORDERED 40 MEQ KCL Q4 FOR 2 DOSES. ORDER INPUT. ALSO NOTIFIED THAT PT HAD ONE BM THIS MORNING WITH SLIGHT PINK COLORATION. SINCE THEN STOOL HAS NOT HAD PINK TINT. DR. VIZCAINO ORDERED CBC TO EVALUATE HGB. ORDERS INPUT. CONTINUING TO MONITOR.
[2024-08-14] MEDS ORDERED: Potassium Chloride 20 MEQ TabCR PO SCH (05:30)
[2024-08-14 05:44] LABS: BASOPHILS ABSOLUTE AUTO 0.06 K/mm3 (0.00-0.23); BASOPHILS PERCENT AUTO 1 % (0-2); EOSINOPHILS ABSOLUTE AUTO 0.34 K/mm3 (0.00-0.68); EOSINOPHILS PERCENT AUTO 3 % (0-6); Hematocrit 30.8 % (37.0-53.0); Hemoglobin 9.9 g/dL (13.5-17.5); IMMATURE GRAN ABSOLUTE AUTO 0.03 K/mm3 (0.00-0.10); IMMATURE GRAN PERCENT AUTO 0 % (0-1); LYMPHOCYTES PERCENT AUTO 10 % (21-46); MONOCYTES ABSOLUTE AUTO 1.12 K/mm3 (0.16-1.47); MONOCYTES PERCENT AUTO 11 % (4-13); Mean Corpuscular HGB 28.3 pg (26.0-34.0); Mean Corpuscular HGB Conc 32.1 g/dL (31.5-36.5); Mean Corpuscular Volume 88 fL (80-100); Mean Platelet Volume 11.8 fL (9.1-12.4); NEUTROPHILS ABSOLUTE AUTO 7.61 K/mm3 (1.96-9.15); NEUTROPHILS PERCENT AUTO 75 % (41-73); Platelet Count 155 K/mm3 (150-400); RDW Coefficient Variation 19.5 % (11.7-14.2); RDW Standard Deviation 62.2 fL (35.1-46.3); White Blood Cell Count 10.16 K/mm3 (4.00-11.30)
[2024-08-14] MEDS ORDERED: Fluticasone 0.05% Nasal Spray SCH (09:00)
[2024-08-14] MEDS ORDERED: Diltiazem HCl 180 MG Cap.CD PO SCH (09:00)
[2024-08-14 09:50] VITALS: BP 115/81
[2024-08-14 11:52] VITALS: BP 112/76
[2024-08-14 15:58] VITALS: BP 124/85
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
[2024-08-14 20:27] VITALS: BP 137/70
--- NOTE | 2024-08-14 22:50 | NUR ---
SPOKE WITH HOSPITALIST LIZETTE. UNSURE ABOUT PT ABILITY TO TAKE 0000 PO VANCO D/T ACUTE WITHDRAWL. LIZETTE ORDERED 500 MG FLAGYL Q8 WITH ORDER TO DC IF PT IS ABLE TO TAKE PILL. ORDER INPUT. WILL ASSESS ABILITY TO TAKE PILL ONCE IT IS DUE.
[2024-08-15] VITALS (7 sets, daily range): BP systolic 110–158; BP diastolic 66–146
[2024-08-15] MEDS ORDERED: MetroNIDAZOLE 500MG/NS 100 ml 100 ML IV SCH
--- NOTE | 2024-08-15 04:31 | NUR ---
SHIFT SUMMARY. PT MENTATION HAS SOMEWHAT WORSENED THROUGHOUT SHIFT. AT SHIFT ONSET WAS ABLE TO SPEAK IN SOMEWHAT DISCERNABLE MANNER ALTHOUGH EVEN THEN SPEECH WAS VERY SLURRED. SHIFT HAS GONE ALONG PT HAS BECOME INCREASINGLY DIFFICULT TO DECIPHER AND IS NEAR IMPOSSIBLE TO EFFECTIVELY REDIRECT. 1:[address] THROUGHOUT MOST OF SHIFT. PT HAS BEEN RUNNING SINUS THROUGHOUT SHIFT. VITALS HAVE BEEN STABLE. CIWAs HAVE REMAINED RELATIVELY HIGH WITH PT BEING MEDICATED PER CIWA PROTOCOL SEVERAL TIMES. PT HAS CLEAR VISUAL HALLUCINATIONS AT TIMES, IS OFTEN AGITATED/ANXIOUS, HAS BEEN CONFUSED, ETC. VERY IMPULSIVE. THUS FAR HAS NOT PULLED OUT IVs BUT HAS BEEN CONSISTENTLY PULLING OFF TELE AND PULSE OX WELL ATTEMPTING OOB. PT RESTING COMFORTABLY IN BED AT THIS TIME. BED LOCKED IN LOWEST POSITION. 1:[address] CONTINUING TO MONITOR.
[2024-08-15 04:36] LABS: BASOPHILS ABSOLUTE AUTO 0.06 K/mm3 (0.00-0.23); BASOPHILS PERCENT AUTO 1 % (0-2); EOSINOPHILS ABSOLUTE AUTO 0.26 K/mm3 (0.00-0.68); EOSINOPHILS PERCENT AUTO 2 % (0-6); Hematocrit 34.3 % (37.0-53.0); Hemoglobin 11.1 g/dL (13.5-17.5); IMMATURE GRAN ABSOLUTE AUTO 0.04 K/mm3 (0.00-0.10); IMMATURE GRAN PERCENT AUTO 0 % (0-1); LYMPHOCYTES ABSOLUTE AUTO 1.37 K/mm3 (0.84-5.20); LYMPHOCYTES PERCENT AUTO 12 % (21-46); MONOCYTES ABSOLUTE AUTO 1.71 K/mm3 (0.16-1.47); MONOCYTES PERCENT AUTO 15 % (4-13); Mean Corpuscular HGB 28.5 pg (26.0-34.0); Mean Corpuscular HGB Conc 32.4 g/dL (31.5-36.5); Mean Corpuscular Volume 88 fL (80-100); Mean Platelet Volume 11.1 fL (9.1-12.4); NEUTROPHILS ABSOLUTE AUTO 7.77 K/mm3 (1.96-9.15); NEUTROPHILS PERCENT AUTO 69 % (41-73); Platelet Count 152 K/mm3 (150-400); RDW Coefficient Variation 20.1 % (11.7-14.2); RDW Standard Deviation 61.6 fL (35.1-46.3); White Blood Cell Count 11.21 K/mm3 (4.00-11.30)
[2024-08-15 04:57] LABS: Bun/Creatinine Ratio 12.8 (12.0-20.0); Calcium, Blood 8.4 mg/dL (8.5-10.1); Creatinine, Blood 0.7 mg/dL (0.60-1.20); Potassium, Blood 3.4 mmol/L (3.5-5.5)
--- NOTE | 2024-08-15 09:48 | NUR ---
am note this rn assumed care at 0700. vital signs stable. spo2 >90% on room air. patient responds to painful stimuli otherwise does not follow commands or open eyes. patient just makes groans when being moved. patient ciwa is 4/5 range since assuming care. patient does no appear to be in cardiac or respiratory distress. see shift assessment for further details. md tijerina by to see patient and plan to discontinue libirium for patient, and will be putting those orders in, no new orders at this time.
--- NOTE | 2024-08-15 13:49 | NUR ---
bedside swallow patient requesting for water, this rn did bedside swallow and patient did not pass. patient choked on water and spit water out and this rn suctioned patient. patient and bedside for this and this rn updated on patients condition
--- NOTE | 2024-08-15 17:30 | NUR ---
shift summary patient neuro has wax and waned throughout the shift. patient will be alert and talking with eyes half open and then will fall asleep when not being stimulated. ciwa average 8 this shift. medicated as needed. vital signs remain stable. no acute changes. plan is up to date.
--- NOTE | 2024-08-15 23:11 | NUR ---
ASSUMPTION OF CARE ASSUMED CARE OF PT AT 1900,PT IN SEMIFOWLER POSITION IN BED,SLEEPING BUT EASLY AROUSABLE.PT RESPONDS TO QUESTIONS ASKED BUT SPEECH IS MUMBLED AND DIFFICULT TO UNDERSTAND.SITTER AT BEDSIDE.PT DENIED PAIN,DENIESD NEEDSPLAN OF CARE REVIEWED.WILL CONTINUE TO MONITOR.
--- NOTE | 2024-08-15 23:14 | NUR ---
URINE RETENTION PT NOTED TO HAVE NOT VOIDED SINCE HIS LAST BLADDER SCAN AT AROUND 1600 PER DAYSDEFT NURSE.PT PROVIDED A URINAL AT 2200 BECAUSE HE SAID THAT HE WILL TRY TO URINATE.PT STATED THAT IT TAKES A WHILE TO START A STREAM OF URINE.URINAL LEFT IN PLACE PER PT'S REQUEST.THIRTY MINUTES LATER,HE HAD NOT URINATED.BLADDER SCAN REVEALED 271ML IN BLADDER.PT DENIES SUPRAPUBIS PAIN WITH PALPATION.WILL TRY AGAIN LATER PER PT.
[2024-08-16] VITALS (7 sets, daily range): BP systolic 115–164; BP diastolic 72–86
[2024-08-16] MEDS ORDERED: Lactated Ringer's 1,000 ML IV SCH ×2 (01:30→14:45)
[2024-08-16] MEDS ORDERED: Albumin (Human) 25gm/100ml 100 ML IV ONE ×2 (02:00→03:00)
[2024-08-16 02:08] LABS: Albumin, Blood 2.2 g/dL (3.4-5.0); Albumin/Globulin Ratio 0.5 (0.8-1.8); Bilirubin, Total 0.9 mg/dL (0.1-1.0); Bun/Creatinine Ratio 21.7 (12.0-20.0); Calcium, Blood 8.3 mg/dL (8.5-10.1); Creatinine, Blood 0.51 mg/dL (0.60-1.20); Globulin, Blood 4.2 g/dL (2.2-4.0); Phosphorus, Blood 2.3 mg/dL (2.5-4.9); Total Protein, Blood 6.4 g/dL (6.4-8.2)
[2024-08-16 02:27] LABS: BASOPHILS ABSOLUTE AUTO 0.05 K/mm3 (0.00-0.23); BASOPHILS PERCENT AUTO 0 % (0-2); EOSINOPHILS ABSOLUTE AUTO 0.18 K/mm3 (0.00-0.68); EOSINOPHILS PERCENT AUTO 2 % (0-6); Hematocrit 33.5 % (37.0-53.0); Hemoglobin 10.7 g/dL (13.5-17.5); IMMATURE GRAN ABSOLUTE AUTO 0.03 K/mm3 (0.00-0.10); IMMATURE GRAN PERCENT AUTO 0 % (0-1); LYMPHOCYTES ABSOLUTE AUTO 1.23 K/mm3 (0.84-5.20); LYMPHOCYTES PERCENT AUTO 10 % (21-46); MONOCYTES ABSOLUTE AUTO 2.03 K/mm3 (0.16-1.47); MONOCYTES PERCENT AUTO 17 % (4-13); Mean Corpuscular HGB 28.4 pg (26.0-34.0); Mean Corpuscular HGB Conc 31.9 g/dL (31.5-36.5); Mean Corpuscular Volume 89 fL (80-100); Mean Platelet Volume 11.7 fL (9.1-12.4); NEUTROPHILS ABSOLUTE AUTO 8.29 K/mm3 (1.96-9.15); NEUTROPHILS PERCENT AUTO 70 % (41-73); Platelet Count 173 K/mm3 (150-400); RDW Coefficient Variation 20.8 % (11.7-14.2); RDW Standard Deviation 64.3 fL (35.1-46.3); Red Blood Cell Count 3.77 M/mm3 (4.30-5.90); White Blood Cell Count 11.81 K/mm3 (4.00-11.30)
--- NOTE | 2024-08-16 02:49 | NUR ---
URINE RETENTION 0020: PT TOLD THIS NURSE THAT HE WANTED TO GO THE BATHROOM TO URINATE AND HAVE A BOWEL MOVEMENT.PT REMINDED THAT HE IS WEAK AND HAS NOT BEEN OUT OF BED FOR TWO DAYS.OFFERED PT A URINAL BUT HE REFUSED TO USE IT,INSISTED ON GOING TO THE BATHROOM.PT TRANSFERRED TO BEDSIDE COMMODE WITH TWO ASSIST AND GAIT BELT.PT SAT ON THE COMMODE FOR A FEW MINUTES THEN TOLD THIS NURSE THAT HE WOULD LIKE TO GO THE TOILET TO BE COMFORTABLE.PT WALKED TO THE TOILET WITH WALKER,TWO ASSIST AND A GAIT BELT.PT WALKED REALLY SLOW.PT HAD DIARRHEA AND REPORTED THAT HE DRIBBLED.PT HAD INCREASED WOB BREATHING DURING AMBULATION TO AND FROM THE TOILET.TANDEM OPERATOR MD CAME TO THE BEDSIDE TO ASSESS PT IN RESPONSE TO THIS NURSE NOTICE OF PT NOT URINATING.ORDERS PLACED.BLADDER SCAN POST VOID 330ML.MD NOTIFIED.WILL CONTINUE TO MONITOR.
--- NOTE | 2024-08-16 06:36 | NUR ---
SHIFT SUMMARY PT HAS BEEN SLEEPING ON/OFF THROUGHOUT THE NIGHT.PT CALM AND COOPERATIVE,NO ATTEMPTS TO GET OUT OF BED OR AGGRESSION NOTED.CIWA SCORE 7.PT HAS TROUBLE SWALLOWING,COUGHS WITH ORAL INTAKE.NO URINE OUTPUT THE WHOLE SHIFT.GIVEN ALBUMIN ORDERED BY THE COVERING RESIDENT.HAD ONE EPISODE OF DIARRHEA.DENIES PAIN,DENIES NEEDS.SITTER AT BEDSIDE.WILL REPORT TO DAYSHIFT NURSE.
--- NOTE | 2024-08-16 08:00 | NUR ---
AM NOTE: PATIENT WAKES TO VOICE/TOUCH. VOICE IS MUMBLED AND SOFT. PATIENT IS VERY HARD TO UNDERSTAND. TELLS ME WHO HE IS, WHERE HE IS, WHY HE IS HERE AND THE MONTH. AT TIMES RANDOM/CONFUSING STATEMENTS. OCCASIONAL JOKES. COOPERATIVE WITH CARES. DENIES NUMBNESS/TINGLING. COMPLAINS OF GENERAL BODY ACHES/BACK PAIN/RESTLESS LEGS. Q2 TURNING AND NEEDED. OVERALL VERY WEAK. NEEDING MOD-MAX ASSIST TO TURN IN BED. CIWA SCORE 1 THIS AM. TELE SHOWING SR WITH HR 80-90'S. SBP 130'S. DENIES CHEST PAIN/PRESSURE/PALPITATIONS. TRACE EDEMA TO BLE. ASCITES. PPP. ON ROOM AIR SATING MID 90'S. LUNGS SOUNDS CLEAR AND DIM IN BASES. OCCASIONAL MOIST/WET SOUNDING COUGH. SHALLOW RESPIRATIONS. SNORE NOTED WHEN SLEEPING. DENIES SOB. SUCTION AT BEDSIDE. ORAL CARE Q4 AND NEEDED. VERY DRY MOUTH WITH BROKEN UPPER TEETH. BOWEL TONES PRESENT. SEVERE ABDOMINAL DISTENTION. DENIES ABDOMINAL PAIN AT THIS TIME. ATTENDS IN PLACE. NO BOWEL MOVEMENT THIS AM. ATTEMPT TO USE URINAL. BLADDER SCAN COMPLETED SHOWING 444ML. STRAIGHT CATH DONE AND 550 ML OF PAOLO FOUL SMELLING URINE DRAINED. POOR ORAL INTAKE. PATIENT TOO LETHARGIC TO SAFELY EAT. BEDSIDE SWALLOW COMPLETED THIS AM AND PATIENT ABLE TO TAKE PILLS WITH APPLESAUCE SAFELY. PATIENT HAVING TROUBLE WITH THIN LIQUIDS. THICKENED WATER VIA SPOON. DR. VEGA NOTIFIED OF CURRENT ORAL INTAKE. DR. VEGA TO BEDSIDE THIS AM. THIS RN UPDATED ON SLEEPINESS, POOR ORAL INTAKE, ISSUES WITH THIN LIQUIDS, AND CURRENT BLOOD PRESSURE. ORDERS FOR STAT AMMONIA AND VBG. ORDERS IN PLACE. THIS RN CALLED AND UPDATED DR. VEGA WITH LAB RESULTS. ORDERS FOR CT OF HEAD WITHOUT CONTRAST. ORDERS IN PLACE. PATIENT UPDATED. CALL LIGHT IN REACH. BED ALARM IN PLACE.
[2024-08-16] MEDS ORDERED: Potassium Chloride 40 MEQ in NS 250 ML IV ONE (09:30)
[2024-08-16 10:45] LABS: Base Excess Venous 0.1 mmol/L; Bicarbonate Venous 24.6 mmol/L (24.0-30.0); PCO2 Venous 31.9 mmHg (38-42); pH Blood Venous 7.48 (7.34-7.37)
--- NOTE | 2024-08-16 12:32 | NUR ---
AFTERNOON VITAL SIGNS STABLE. PATIENT CONTINUES TO BE SLEEPY. WAKES FOR CARES BY BRIEFLY OPENING EYES. ORAL CARE COMPLETED AND PATIENT MORE AWAKE. ADDITIONAL BEDSIDE SWALLOW SCREEN DONE AND PATIENT FAILED COMPARED TO THIS MORNING. AFTERNOON MEDICATIONS HELD AT THIS TIME. WILL CONTINUE TO ASSESS BASED ON PATIENT PRESENTATION. AFTERNOON CIWA SCORING 3 DUE TO NOT KNOWN THE CORRECT DATE. CALL LIGHT IN REACH. BED ALARM IN PLACE.
--- NOTE | 2024-08-16 13:37 | NUR ---
PRESTON UPDATED BY THIS RN. PRESTON STATES PATIENTS VOICE IS NORMALLY VERY CLEAR AND EASY TO UNDERSTAND. STATES HE IS VERY ARTICULATE. SHE ALSO TELLS ME HIS APPEATITE HAS BEEN POOR FOR THE LAST THREE WEEKS AND HE HAS BARELY BEEN EATING AT HOME. PRESTON DISCUSSES HE HAS BEEN DEALING WITH ORAL SURGERIES SINCE NOVEMBER AND STATES THE PATIENT CLAIMS HE WAS NOT EATING DUE TO ORAL PAIN. VITAL SIGNS REMAIN STABLE. PATIENT CONTINUES TO BE SLEEPY. WAKING FOR CARES. PLAN FOR CT OF HEAD THIS AFTERNOON. CALL LIGHT IN REACH. BED ALARM IN PLACE.
--- NOTE | 2024-08-16 14:09 | NUR ---
DAUGHTER KARIN CALLED AND UPDATED BY THIS RN. PHONE NUMBER . PHONE NUMBER PASSED TO DR. VEGA WELL AFTERNOON UPDATE. THIS RN UPDATED MD ON ESTIMATE TIME FRAME OF CT, CURRENT MENTATION, STABLE VITAL SIGNS, FAILED SWALLOW AND HOLDING AFTERNOON MEDICATIONS/MEAL.
[2024-08-16] MEDS ORDERED: Thiamine HCl 500 MG in NS 100 ML IV SCH (15:00)
--- NOTE | 2024-08-16 17:37 | NUR ---
PT TO CT AT THIS TIME. JIVE DEVELOPER NOTIFIED.
--- NOTE | 2024-08-16 17:56 | NUR ---
PATIENT BACK FROM CT AT THIS TIME. VITAL SIGNS STABLE. ON ROOM AIR. SINUS RHYTHM WITH HR 80-90'S. DENIES PAINS. Q2 TURNING AND NEEDED. MENTATION IMPROVED SLIGHTLY LATE AFTERNOON. PATIENT REQUESTING TO GET UP TO GO TO BATHROOM. HEAVY TWO PERSON ASSIST TO BSC. LOOSE STOOL. VOICE CONTINUES TO BE MUMBLED AND HARD TO UNDERSTAND. OPENING EYES BRIEFLY FOR CARES, FALLS ASLEEP EASILY. BED ALARM IN PLACE. CALL LIGHT IN REACH. LR INFUSING PER MD VEGA ORDERS.
--- NOTE | 2024-08-16 22:32 | NUR ---
UPDATE PT MORE ALERT THAN AM SHIFT, ORIENTED TO PERSON, PLACE AND DATE, FOLLOWS COMMANDS, MUMBLED SOFT SPOKEN SPEECH, ABLE TO STAY AWAKE AND PASSED BEDSIDE SWALLOW WITH THICKENED WATER AND PUDDING, HS MEDS GIVEN PO CRUSHED IN PUDDING, PT SWALLOWED WITHOUT DIFFICULTY. PT RESTLES AT THIS TIME AND CONFUSED TO PLACE AND SITUATION, ATTEMPTING TO GET OUT OF BED AND YELLING "HONEY" FOR AND ASKING "WHO IS IN THE BACK ROOM?", REORIENTED EASILY AND REPOSITIONED IN BED, PT DENIES NEED TO URINATE, BLADDER SCAN DONE WITH NOTED >485 ML, 16 FR BROWN CATH PLACED WITH STERILE TECHNIQUE WITHOUT DIFFICULTY, PT TOLERATED WELL, 500 ML PAOLO URINE RETURNED IMMEDIATELY, 10 ML BULB INFLATED WITH 10 ML NS AND SECURED WITH STAT LOCK TO RIGHT LEG, BROWN DRAINING TO GRAVITY, SIDE RAILS UP X2, BED ALARM ON
--- NOTE | 2024-08-17 00:28 | NUR ---
UPDATE PT ALERT AND RESTLESS, CIWA 6, ATTEMPTING TO GET OUT OF BED AND YELLING OUT HEY, REPOSITIONED PT FOR COMFORT IN BED AND REDIRECTED PT NOT TO GET OUT OF BED AND USE OF CALL LIGHT, REMINDED PT HE IS IN THE HOSPITAL AND TIME OF NIGHT, PT GIVEN CELL PHONE AND GLASSED PER REQUEST TO CALL PRESTON,CELL PHONE NOT WORKING SO PT CALLED FROM ROOM PHONE AND SPOKE WITH PRESTON. PT MORE CALM AFTER TALKING WITH HER AND UNDERSTANDS AT THIS TIME HE IS STAYING THE NIGHT AND EVERY ONE IS AWARE WHERE HE IS. SCHEDULED MEDS GIVEN, VANCOMYCIN CAPSULE GIVEN PO WHOLE WITH APPLESAUCE, PT SWALLOWED WITHOUT DIFFICULTY, SIDE RAILS UP X2 BED ALARM ON,CALL LIGHT IN REACH
[2024-08-17 03:28] VITALS: BP 122/75
[2024-08-17 04:14] LABS: BASOPHILS ABSOLUTE AUTO 0.05 K/mm3 (0.00-0.23); BASOPHILS PERCENT AUTO 0 % (0-2); EOSINOPHILS ABSOLUTE AUTO 0.16 K/mm3 (0.00-0.68); EOSINOPHILS PERCENT AUTO 1 % (0-6); Hematocrit 30.1 % (37.0-53.0); Hemoglobin 9.6 g/dL (13.5-17.5); IMMATURE GRAN ABSOLUTE AUTO 0.06 K/mm3 (0.00-0.10); IMMATURE GRAN PERCENT AUTO 0 % (0-1); LYMPHOCYTES ABSOLUTE AUTO 0.85 K/mm3 (0.84-5.20); LYMPHOCYTES PERCENT AUTO 6 % (21-46); MONOCYTES ABSOLUTE AUTO 1.62 K/mm3 (0.16-1.47); MONOCYTES PERCENT AUTO 12 % (4-13); Mean Corpuscular HGB Conc 31.9 g/dL (31.5-36.5); Mean Corpuscular Volume 88 fL (80-100); Mean Platelet Volume 10.8 fL (9.1-12.4); NEUTROPHILS ABSOLUTE AUTO 10.77 K/mm3 (1.96-9.15); NEUTROPHILS PERCENT AUTO 80 % (41-73); Platelet Count 180 K/mm3 (150-400); RDW Coefficient Variation 20.9 % (11.7-14.2); RDW Standard Deviation 63.8 fL (35.1-46.3); Red Blood Cell Count 3.43 M/mm3 (4.30-5.90); White Blood Cell Count 13.51 K/mm3 (4.00-11.30)
[2024-08-17 04:35] LABS: Albumin, Blood 2.6 g/dL (3.4-5.0); Albumin/Globulin Ratio 0.7 (0.8-1.8); Bun/Creatinine Ratio 16.8 (12.0-20.0); Calcium, Blood 8.5 mg/dL (8.5-10.1); Creatinine, Blood 0.48 mg/dL (0.60-1.20); Globulin, Blood 3.6 g/dL (2.2-4.0); Magnesium, Blood 1.7 mg/dL (1.6-2.4); Potassium, Blood 2.7 mmol/L (3.5-5.5); Total Protein, Blood 6.2 g/dL (6.4-8.2)
--- NOTE | 2024-08-17 04:48 | NUR ---
update called and notified md of am lab results potassium 2.7. mag 1.7, states she will look at chart and place orders
[2024-08-17] MEDS ORDERED: Potassium Chloride 20 MEQ in NS 90 ML IV SCH (05:40)
[2024-08-17] MEDS ORDERED: Mag Sulfate 1 GM/D5% 100ML 100 ML IV ONE (05:45)
--- NOTE | 2024-08-17 06:42 | NUR ---
shift summary no acute events,vss, afebrile, pt awake most of this shift, follows commands scheduled meds given crushed in pudding without difficulty, ciwa score max of 6 this shift, medicated with trazadone 25mg for sleep , med effective, tolbert patent and draining to gravity, bed alarm on, side rails up x3, call light in reach, potassium and magnesium replacement infusing at this time per orders
[2024-08-17 07:32] VITALS: BP 152/83
[2024-08-17] MEDS ORDERED: LORazepam 2 MG/ML 1ML Injection IV PRN (08:20)
--- NOTE | 2024-08-17 10:12 | NUR ---
AM NOTE: PATIENT ALERT AND ORIENTED X3. ABLE TO TELL ME WHERE HE IS, WHO HE IS AND THE MONTH. VOICE CONTINUES TO BE MUMBLED AND HARD TO UNDERSTAND. PERRLA, GLASSES AT BEDSIDE. MORE AWAKE THIS MORNING AND TALKING MORE. PULLING AT GOWN AND ASKING TO GET UP. PATIENT REMAINS ALERT FOR A FEW QUESTIONS AND FALLS BACK ASLEEP. UP TO RECLINER WITH 2 PERSON MAX LIFT/GAIT BELT. BED/CHAIR ALARM IN PLACE. PATIENT OVERALL VERY WEAK. DENIES PAINS. TELE SHOWING SR WITH HR 80-90'S. SBP 150'S. DENIES CHEST PAIN/PRESSURE/PALPITATIONS. MILD EDEMA TO BLE. PPP. ON ROOM AIR - 2L NASAL CANNULA. LUNGS SOUNDS COARSE WITH DIMINISHED BASES. COUGH MOIST. SUCTION AT BEDSIDE. ORAL CARE WITH GREEN SUCTION SWABS. BROKEN TEETH. PATIENT ABLE TO TAKE MEDS CRUSHED IN PUDDING THIS AM AND A FEW SPOONFULS OF THICKENED WATER. NOT ALERT ENOUGHT TO PARTICIPATE IN MEALS AT THIS TIME SAFELY. DR. VEGA AWARE. BOWL TONES PRESENT. ABDOMIN DISTENDED. ATTENDS IN PLACE. BROWN CATH DRAINING PAOLO URINE. DR. EVGA BY THIS AM AND ORDERS FOR THIS RN TO DISCONTINUE IV FLAGLY. ORDER IN PLACE. THIS RN DISCUSSED SWALLOW CONCERN AND CURRENT MENTATION WITH MD. CALL LIGHT IN REACH. PATIENT IN RECLINER AT THIS TIME WITH CHAIR ALARM.
[2024-08-17 11:09] VITALS: BP 145/80
[2024-08-17 15:34] VITALS: BP 133/90
--- NOTE | 2024-08-17 16:10 | NUR ---
PATIENT VERY SLEEPY. WAKING TO VERBAL AND TOUCH. PATIENT OPENING EYES WHEN ASKED BUT QUICKLY CLOSES THEM AND FALLS BACK ASLEEP. CONTINUES TO BE HARD TO UNDERSTAND. STILL NOT SAFE TO EAT MEALS AT THIS TIME. PATIENT COUGHS WITH SMALL AMOUNT OF THICKENED WATER AND HAS WET COUGH. DR. VEGA CALLED AND UPDATED ON CONCERN FOR ASPIRATION WITH PO INTAKE. NO NEW ORDERS FOR THIS RN TO PLACE. PATIENT BACK TO BED, FLOATING HIPS. CALL LIGHT IN REACH. BED ALARM IN PLACE.
[2024-08-17 20:21] VITALS: BP 141/78
[2024-08-18] VITALS: BP 138/88
--- NOTE | 2024-08-18 00:16 | NUR ---
2300 - SPOKE WITH ON-CALL RESIDENT DR. HOFFMANN REGARDING PT UNABLE TO SAFELY SWALLOW MEDICATIONS EVEN CRUSHED WITH PUDDING/APPLESAUCE. COUGHING WITH ANY PO INTAKE AND UNABLE TO FOLLOW COMMANDS RELIABLY. PER PROVIDER ORDER FOR ST EVAL AND WILL EVALUATE MEDS TO SEE IF ANYTHING CAN BE CHANGED/GIVEN IV. NOTIFIED OF INABILITY TO GIVE PO VANCO AND ELIQUIS. NO FURTHER ORDERS AT THIS TIME
[2024-08-18] MEDS ORDERED: Enoxaparin 100 MG/ML 1ML SYR SC ONE (01:00)
[2024-08-18 03:57] VITALS: BP 131/63
[2024-08-18 05:38] LABS: BASOPHILS ABSOLUTE AUTO 0.04 K/mm3 (0.00-0.23); BASOPHILS PERCENT AUTO 0 % (0-2); EOSINOPHILS PERCENT AUTO 2 % (0-6); Hematocrit 28.3 % (37.0-53.0); Hemoglobin 9.2 g/dL (13.5-17.5); IMMATURE GRAN ABSOLUTE AUTO 0.04 K/mm3 (0.00-0.10); IMMATURE GRAN PERCENT AUTO 0 % (0-1); LYMPHOCYTES ABSOLUTE AUTO 1.28 K/mm3 (0.84-5.20); LYMPHOCYTES PERCENT AUTO 11 % (21-46); MONOCYTES ABSOLUTE AUTO 1.94 K/mm3 (0.16-1.47); MONOCYTES PERCENT AUTO 16 % (4-13); Mean Corpuscular HGB 28.2 pg (26.0-34.0); Mean Corpuscular HGB Conc 32.5 g/dL (31.5-36.5); Mean Corpuscular Volume 87 fL (80-100); Mean Platelet Volume 10.8 fL (9.1-12.4); NEUTROPHILS ABSOLUTE AUTO 8.61 K/mm3 (1.96-9.15); NEUTROPHILS PERCENT AUTO 71 % (41-73); Platelet Count 192 K/mm3 (150-400); RDW Standard Deviation 63.9 fL (35.1-46.3); Red Blood Cell Count 3.26 M/mm3 (4.30-5.90); White Blood Cell Count 12.11 K/mm3 (4.00-11.30)
[2024-08-18 05:59] LABS: Bun/Creatinine Ratio 11.9 (12.0-20.0); Calcium, Blood 8.5 mg/dL (8.5-10.1); Creatinine, Blood 0.42 mg/dL (0.60-1.20); Potassium, Blood 3.1 mmol/L (3.5-5.5)
[2024-08-18 07:40] VITALS: BP 145/90
[2024-08-18] MEDS ORDERED: Potassium Chloride 20 MEQ TabCR PO SCH (08:00)
--- NOTE | 2024-08-18 09:00 | NUR ---
AM NOTE: PATIENT WAKES TO VOICE/TOUCH. VOICE CONTINUES TO BE MUMBLED AND HARD TO UNDERSTAND. PATIENT MOVING ALL EXTREMITIES WITH [employer] WOM[employer] SPECIALIST. VERY WEAK AND 2 PERSON MAX ASSIST WITH TRANSFERS. PT ORDERS IN PLACE. PERRLA. GLASSES AT BEDSIDE. PATIENT ABLE TO TELL ME WHO HE IS AND WHERE HE IS. RECOGNIZES FAMILY AND FRIENDS. UNABLE TO TELL ME WHY HE IS HERE. AT TIMES VERY CONFUSING STATEMENTS AND OCCASIONALLY CALLING OUT. BED ALARM ON FOR SAFETY. TELE SHOWING SR WITH HR 80-90'S. DENIES CHEST PAIN/PRESSURE/PALPIATIONS. PPP. MILD EDEMA TO BLE. IV FLUIDS INFUSING PER EMAR. ON ROOM AIR SATING ABOVE 95%. LUNG SOUNDS COARSE WITH WET/MOIST SOUNDING COUGH. BOWEL TONES PRESENT. PATIENT ABDOMIN DISTENDED AND FIRM. DENIES ABDOMINAL PAIN/NAUSEA. SPEECH THERAPY IN AND PATIENT NPO. ORAL CARE WITH GREEN SUCTION SWABS. PATIENT MOUTH VERY DRY AND NEEDING FREQUENT CLEANING AND MOISTURIZER. ATTENDS IN PLACE. BROWN CATH IN PLACE DRAINING PAOLO URINE TO GRAVITY. BED BATH COMPLETED THIS AM. Q2 TURNING AND NEEDED. MEPILEX IN PLACE OVER COCCYX FOR PREVENTION. DR. VEGA AT BEDSIDE THIS AM AND THIS RN PRESENT. THIS RN DISCUSSED WITH MD BUI POTASSIUM LAB, ONGOING FLUIDS WITH REDUCED URINE OUTPUT OVER NIGHT, CONCERNS FOR ASPIRATION, SPEECH THERAPY ORDERS, MENTATION AND MUMBLED SPEECH, FURTHER IMAGING, DISCONTINUING CIWAS, AND INABILITY TO TAKE PO MEDS. SIG OTHER PRESTON AT BEDSIDE THIS AM AND UPDATED.
[2024-08-18] MEDS ORDERED: Potassium Chloride 20 MEQ in NS 90 ML IV ONE (10:15)
[2024-08-18] MEDS ORDERED: Acetaminophen 650 MG Supp PR PRN (10:45)
[2024-08-18 11:07] VITALS: BP 137/80
--- NOTE | 2024-08-18 11:30 | NUR ---
PATIENT HOLDING LEFT SIDE OF HEAD. THIS RN ASSESSED NEURO WITH NO NEW CHANGES BESIDES 7/10 HEADACHE. THIS RN CALLED AND REPORTED HEADACHE SYMPTOMS TO DR. VEGA. ORDERS FOR TYLENOL IN 650MG Q6 FOR PAIN. TYLENOL GIVEN. SIG OTHER AT BEDSIDE. VITAL SIGNS REMAINS STABLE.
[2024-08-18] MEDS ORDERED: Lactated Ringer's 1,000 ML IV SCH (11:50)
[2024-08-18 16:09] VITALS: BP 140/74
--- NOTE | 2024-08-18 18:35 | NUR ---
CALL SHIFT SUMMARY: NO ACUTE CHANGES. PATIENT REMAINS LETHARGIC, WAKES TO VOICE/TOUCH. CONTINUES TO BE HARD TO UNDERSTAND. SEE PREVIOUS NOTES FOR MORE DETAIL. PATIENT DENIES PAIN. Q2 TURNING AND NEEDED. MOVING ARMS AROUND IN BED AND AT TIMES PULLING ON GOWN. SIG SPOUSE AT BEDSIDE THROUGHOUT THE AFTERNOON. MOUTH VERY DRY. ORAL CARE COMPLETED THROUGHOUT SHIFT. REMAINS NPO. TELE CONTINUES TO SHOW SR WITH HR 90'S. VITALS STABLE. IV FLUIDS CONTINUE TO INFUSE PER MD VEGA. URINE OUTPUT 200ML FOR THIS SHIFT. BROWN CATH REMAINS IN PLACE. NO BOWEL MOVEMENT THIS SHIFT. Q2 TURNING AND NEEDED. CALL LIGHT IN REACH. BED ALARM IN PLACE.
[2024-08-18 19:39] VITALS: BP 154/85
[2024-08-18] MEDS ORDERED: Enoxaparin 80 MG/0.8 ML SYR SC SCH (21:00)
--- NOTE | 2024-08-18 21:14 | NUR ---
ASSUMPTION OF CARE ASSUMED PT'S CARE AT 1900,BEDSIDE REPORT COMPLETED WITH [facility] NURSE.PT APPEARS DROWSY BUT ALERT.RESPONDS TO QUESTIONS ASKED APPROPRIATELY.DENIES PAIN,DENIES NEEDS.ORAL CARE COMPLETED.PLAN OF CARE REVIEWED.CALL LIGHT AND PT'S ITEMS WITHIN REACH.BROWN IN PLACE DRAINING PAOLO COLORED URINE.WILL CONTINUE TO MONITOR.
[2024-08-19 00:08] VITALS: BP 149/74
[2024-08-19 03:35] VITALS: BP 154/87
[2024-08-19 04:12] LABS: Base Excess Venous -0.2 mmol/L; Bicarbonate Venous 24.1 mmol/L (24.0-30.0); PCO2 Venous 36.4 mmHg (38-42); pH Blood Venous 7.43 (7.34-7.37)
[2024-08-19 04:13] LABS: BASOPHILS ABSOLUTE AUTO 0.06 K/mm3 (0.00-0.23); BASOPHILS PERCENT AUTO 1 % (0-2); EOSINOPHILS ABSOLUTE AUTO 0.23 K/mm3 (0.00-0.68); EOSINOPHILS PERCENT AUTO 2 % (0-6); Hematocrit 28.1 % (37.0-53.0); Hemoglobin 9.1 g/dL (13.5-17.5); IMMATURE GRAN ABSOLUTE AUTO 0.02 K/mm3 (0.00-0.10); IMMATURE GRAN PERCENT AUTO 0 % (0-1); LYMPHOCYTES ABSOLUTE AUTO 1.26 K/mm3 (0.84-5.20); LYMPHOCYTES PERCENT AUTO 13 % (21-46); MONOCYTES ABSOLUTE AUTO 1.51 K/mm3 (0.16-1.47); MONOCYTES PERCENT AUTO 15 % (4-13); Mean Corpuscular HGB 28.2 pg (26.0-34.0); Mean Corpuscular HGB Conc 32.4 g/dL (31.5-36.5); Mean Corpuscular Volume 87 fL (80-100); Mean Platelet Volume 10.7 fL (9.1-12.4); NEUTROPHILS ABSOLUTE AUTO 6.91 K/mm3 (1.96-9.15); NEUTROPHILS PERCENT AUTO 69 % (41-73); Platelet Count 191 K/mm3 (150-400); RDW Coefficient Variation 21.2 % (11.7-14.2); RDW Standard Deviation 64.6 fL (35.1-46.3); Red Blood Cell Count 3.23 M/mm3 (4.30-5.90); White Blood Cell Count 9.99 K/mm3 (4.00-11.30)
[2024-08-19 04:29] LABS: Bun/Creatinine Ratio 9.7 (12.0-20.0); Calcium, Blood 8.4 mg/dL (8.5-10.1); Creatinine, Blood 0.41 mg/dL (0.60-1.20)
--- NOTE | 2024-08-19 06:24 | NUR ---
SHIFT SUMMARY PT HAS BEEN SLEEPING MOST OF THE NIGHT,OCCASIONALLY WAKES UP RESTLESS BUT EASILY REDIRECTABLE.BROWN OUTPUT PAOLO IN COLOR.ORAL CARE COMPLETED EVERY TWO HOURS.NO S/S OF PAIN/DISCOMFORT NOTED.CALL LIGHT AND PT'S ITEMS WITHIN REACH.WILL GIVE REPORT TO DAYSHIFT NURSE.
[2024-08-19 07:19] VITALS: BP 133/74
[2024-08-19] MEDS ORDERED: Miconazole Nitrate 2% 85 GM PWD TOP SCH (09:00)
[2024-08-19] MEDS ORDERED: Potassium Chloride 40 MEQ in NS 250 ML IV ONE (10:50)
[2024-08-19] MEDS ORDERED: D5W-1/4NS 1,000 ML IV SCH (10:55)
[2024-08-19 11:34] VITALS: BP 131/78
[2024-08-19] MEDS ORDERED: TPN Consult Notification XX ONE (12:10)
[2024-08-19 12:41] LABS: Triglycerides 75 mg/dL (30-160)
[2024-08-19 15:14] VITALS: BP 104/71
--- NOTE | 2024-08-19 16:54 | NUR ---
Met with pt's s/o Taylor today. She verbalizes concerns that the patient "may not come out of this." She states she has seen her brother go through a similar situation in [place], which unfortunately ended in his demise after a 29 day hospital stay. According to hospitalist, at this time there is no logical reason for the patient's current condition other than decompensated liver disease. MRI pending, awaiting cardiology approval related to metal in pt's head from a previously placed shunt. ST unable to assess the patient today, will attempt again tomorrow. Message left for pt's daughter, will attempt again tomorrow to update her.
[2024-08-19] MEDS ORDERED: Parenteral Electolytes 40 ML,Potassium Phosphate Dibasic 30 MM,Multivitamins 10 ML,ZINC... IV SCH (17:00)
--- NOTE | 2024-08-19 18:46 | NUR ---
SHIFT SUMMARY AT START OF SHIFT PT RESPONDING ONLY TO VERBAL STIMULI AND CONFUSED. THIS AFTERNOON PT ALERT AND ABLE TO STATE HIS NAME, AND SHOUTING OUT HIS WIFES NAME. HR IN THE 80'S-90'S, SINUS RHYTHM, SBP STABLE. O2 >92% ON RA, BREATHING EVEN AND UNLABORED. BROWN IN PLACE, DRAINING TO GRAVITY, PT HAS ONLY HAD 200ML OUTPUT, MD AWARE, NO NEW ORDERS. FLUIDS RUNNING AT 75 . PT NPO AT THIS TIME, RECEIVING TPN. MRI ORDER PLACED, PT WITH HX OF STENT PLACEMENT, REORDS REQUESTED AND RECIEVED. RECORDS SENT TO IMAGING. IMAGING TO GET MORE INFORMATION ABOUT PTS STENTS AND REPORT BACK IF MRI IS OKAY TO COMPLETE. PT UP TO CHAIR THIS AFTERNOON VIA LIFT. WILL MONITOR PT AND REPORT TO MACHINE PROGRAMMER RN.
--- NOTE | 2024-08-19 20:10 | NUR ---
ASSUMPTION OF CARE ASSUMED CARE OF PT AT 1900,BEDSIDE REPORT COMPLETED WITH [facility].PT AWAKE AND ALERT,SPEECH CLEAR,CONVERSING APPROPRIATELY.PLAN OF CARE REVIEWED,PT DENIES PAIN,DENIES NEEDS.CALL LIGHT AND PT'S ITEMS WITHIN REACH.PPN INFUSING AT 104ML/HR.FLUIDS INFUSING AT 75ML/HR.WILL CONTINUE TO MONITOR.
[2024-08-19 20:16] VITALS: BP 136/85
[2024-08-20 00:23] VITALS: BP 153/88
[2024-08-20 03:59] VITALS: BP 157/96
[2024-08-20 05:45] LABS: Magnesium, Blood 1.7 mg/dL (1.6-2.4); Phosphorus, Blood 2.3 mg/dL (2.5-4.9)
--- NOTE | 2024-08-20 06:30 | NUR ---
SHIFT SUMMARY PT HAS BEEN SLEEPING ON/OFF,OCCASIONALLY TALKS IN HIS SLEEP.INTERMITTENT RESTLESS NOTED THROUGHOUT THE SHIFT BUT PT WAS EASILY REDIRECTABLE.ORAL CARE COMPLETED NEEDED.NO S/S OF PAIN/DISCOMFORT NOTED.CALL LIGHT AND PT'S ITEMS WITHIN REACH.WILL GIVEN REPORT TO DAY[facility] NURSE.
[2024-08-20 07:13] VITALS: BP 153/87
--- NOTE | 2024-08-20 10:25 | NUR ---
ASSUMPTION OF CARE PT ALERT, ORIENTED TO SLEF, PLACE, AND YEAR. HE IS CONFUSED AT TIMES. PT DENIES CP/PRESSURE, NUMB/TINGLING, SBP STABLE. O2 >92% ON RA, DENIES SOB. PHYSICAL THERAPY WORKING WITH PT TODAY. PT UP IN RECLINER. ST TO BEDSIDE FOR EVAL, NO CHANGES, PT NPO STILL. PPN RUNNING AT 104 PER EMAR. BROWN CATH IN PLACE, DRAINING TO GRAVITY. MRI TO BE COMPLETED THIS AFTERNOON. PT SITTING IN RECLINER AT THIS TIME. HE DENIES ANY QUESTIONS/CONCERNS AT THIS ANTONY. PROVIDER TO BEDSIDE TO DISCUSS PLAN OF CARE. PT STATUS CHANGE TO MEDICAL WITH NO TELEMETRY. TELE REMOVED.
[2024-08-20 13:19] LABS: Bun/Creatinine Ratio 9.7 (12.0-20.0); Calcium, Blood 8.5 mg/dL (8.5-10.1); Creatinine, Blood 0.51 mg/dL (0.60-1.20); Potassium, Blood 2.8 mmol/L (3.5-5.5)
--- NOTE | 2024-08-20 15:17 | NUR ---
Met with pt's daughter Patrizia who states both she, her brother and pt's girlfriend Taylor are all in agreement; pt will be going home with hospice. Patrizia is tearful, but states after today's MRI shows no change, she wants to honor her father's wish to return home. She has [facility] to [facility]. Emotional support offered to Patrizia, and answered specific hospice questions for her.
[2024-08-20 15:31] VITALS: BP 135/79
[2024-08-20] MEDS ORDERED: Potassium Chloride 40 MEQ IV ONE (15:45)
[2024-08-20] MEDS ORDERED: Potassium Chloride 40 MEQ in NS 250 ML IV STA (15:53)
--- NOTE | 2024-08-20 17:57 | NUR ---
SHIFT SUMMARY PT ALERT, ORIENTED TO SELF, PLACE, YEAR. HE IS CONFUSED AT TIMES. HE IS MEDICAL STATUS WITH NO TELE. HE DENIES CP/PRESSURE, NUMB/TINGLING, SBP STABLE. O2 >92% ON RA, DENIES SOB. BROWN CATH IN PLACE, DRAINING TO GRAVITY. ABD FIRM ON PALPATION, HE REPORTS TENDERNESS. PT WITH A SMEAR IN HIS BREIF BUT NO ACTUAL BOWEL MOVEMENT. PPN RUNNING PER EMAR. IV FLUIDS RUNNING PER EMAR. CARE MANAGMENT TO BEDSIDE TO DISCUSS DISCHARGE PLANS WITH FAMILY, SEE CASE MANAGMENT NOTE. PT HAD POTASSIUM OF 2.8, NOTIFIED, ORDER PLACED FOR 40 MEQ OF KCL, INFUSING PER ORDER. PT RESTING IN BED AT THIS TIME. WILL MONITOR PT AND REPORT TO PUBLIC WELFARE DIRECTOR RN.
[2024-08-20 20:20] VITALS: BP 151/85
--- NOTE | 2024-08-21 00:47 | NUR ---
ASSUMPTION OF CARE ASSUMED PT'S CARE AT 1900,BEDSIDE REPORT COMPLETED WITH [facility] NURSE.PPN INFUSING AT 104ML/HR,FLUIDS AT 100ML/HR.PT AWAKE AND ALERT.PT DENIES PAIN,DENIES NEEDS.BED ALARM IN USE FOR PT'S SAFETY.WILL CONTINUE TO MONITOR.
--- NOTE | 2024-08-21 01:03 | NUR ---
RECEIVED TELEPHONE REPORT FROM PCU NURSEULICES.
--- NOTE | 2024-08-21 01:17 | NUR ---
TRANSFER TO ROOM 3135 PT TRANSFERRED VIA BED TO ROOM 3135,REPORT GIVEN TO MOLLY ROUSE.ALL QUESTIONS BY RECEIVING NURSE ANSWERED.ALL MEDS,BELONGINGS AND CHART SENT WITH PT.
--- NOTE | 2024-08-21 01:20 | NUR ---
ASSUMED CARE OF PT: PT ARRIVED TO RM 308 VIA HOSPITAL BED. TPN AT 104 MLS/HR, D5W-1/4NS AT 100 MLS/HR. ON RA. ALERT TO SELF. MUMBLES WHEN TALKING. BROWN DRAINING DARK YELLOW URINE. PT MOVES AROUND IN BED, IS IMPULSIVE, BED ALARM ON. APPROPRIATE SIDE RAILS IN PLACE, CALL LT IN REACH. WILL CONTINUE TO PROVIDE CARE UNTIL SHIFT REPORT.
--- NOTE | 2024-08-21 02:18 | NUR ---
PT JOEYY, MOVES AROUND IN BED. IMPULSIVE PER PCU ELECTRONICS TECH. BED ALARM IS ON. MUMBLING TO SELF IN BED. WILL CONTINUE TO PROVIDE CARE. BED ALARM ON. CALL LT IN REACH.
--- NOTE | 2024-08-21 04:02 | NUR ---
A LITTLE RESTLESS, NOT TRYING TO EXIT BED. PPN AND IVF INFUSING WITHOUT DIFFICULTY. CALL LT IN REACH. BED ALARM ON.
[2024-08-21 04:25] VITALS: BP 152/78
--- NOTE | 2024-08-21 05:41 | NUR ---
SHIFT SUMMARY: ALERT TO SELF. RESTLESS AT TIMES. 3 BED RAILS UP TO HELP KEEP PT FROM EXITING BED. SMALL LOOSE STOOL X 1. BROWN PATENT AND DRAINING DARK YELLOW URINE. ON RA. PPN AT 104 MLS/HR AND IVF AT 100 MLS/HR INFUSING WITHOUT DIFFICULTY. REPOSITIONED PT FOR COMFORT. MEPILEX TO COCCYX TO HELP PREVENT SKIN BREAKDOWN. NPO D/T FAILED SWALLOW EVALS. WILL CONTINUE TO PROVIDE CARE UNTIL SHIFT REPORT TO ONCOMING NURSE. CALL LT IN REACH. BED ALARM ON.
[2024-08-21 06:15] LABS: Bun/Creatinine Ratio 12.4 (12.0-20.0); Calcium, Blood 8.2 mg/dL (8.5-10.1); Creatinine, Blood 0.4 mg/dL (0.60-1.20); Magnesium, Blood 1.8 mg/dL (1.6-2.4); Phosphorus, Blood 2.6 mg/dL (2.5-4.9)
[2024-08-21] MEDS ORDERED: Potassium Chloride 40 MEQ in NS 250 ML IV ONE (07:55)
[2024-08-21 07:57] VITALS: BP 107/74
[2024-08-21] MEDS ORDERED: FAMO20 PO (14:15)
[2024-08-21] MEDS ORDERED: BISA10S PR (14:15)
[2024-08-21] MEDS ORDERED: VANCOCIN HCL250 MG PO (14:16)
[2024-08-21] MEDS ORDERED: NICO21TP TOP (14:16)
[2024-08-21] MEDS ORDERED: MICONAZOLE NIT130 GM TOP (14:16)
[2024-08-21] MEDS ORDERED: VISBIOME 112.51 EACH PO (14:17)
--- NOTE | 2024-08-21 15:41 | NUR ---
SUMMARY/DISCHARGE PT DISCHARGED TO HOME ON HOSPICE, PT HAS BEEN CONFUSED MOST OF THE DAY, BELONGINGS SENT WITH THE PATIENT, A WALKER AND SEVERAL BAGS
== END 2024-08-21 15:38 | disposition hospice, home (50) | DRG 872 ==
LOC: ER 12:16 → PCU 12:17 → ERHOLD 12:17 → PCU 18:07 → MEDS 08-21 01:19
PROVIDERS: Internal Medicine; Student in an Organized Health Care Education/Training Program; ADMIT Hospitalist
PROC: 3E03329 Introduction of Other Anti-infective into Peripheral Vein, Percutaneous Approach (ICD-10-PCS; principal; 2024-08-12)
PROC: 3E0336Z Introduction of Nutritional Substance into Peripheral Vein, Percutaneous Approach (ICD-10-PCS; 2024-08-12)
PROC: 0W9G3ZZ Drainage of Peritoneal Cavity, Percutaneous Approach (ICD-10-PCS; 2024-08-12)
PROC: 30233J1 Transfusion of Nonautologous Serum Albumin into Peripheral Vein, Percutaneous Approach (ICD-10-PCS; 2024-08-12)
PROC: HZ2ZZZZ Detoxification Services for Substance Abuse Treatment (ICD-10-PCS; 2024-08-12)
DX: A41.9 Sepsis, unspecified organism (principal); K22.10 Ulcer of esophagus without bleeding; Z68.41 Body mass index [BMI] 40.0-44.9, adult; A04.72 Enterocolitis due to Clostridium difficile, not specified as recurrent; I48.20 Chronic atrial fibrillation, unspecified; F10.239 Alcohol dependence with withdrawal, unspecified; K76.6 Portal hypertension; E87.0 Hyperosmolality and hypernatremia; I10 Essential (primary) hypertension; Z51.5 Encounter for palliative care; J44.9 Chronic obstructive pulmonary disease, unspecified; F43.10 Post-traumatic stress disorder, unspecified; K76.0 Fatty (change of) liver, not elsewhere classified; I25.10 Atherosclerotic heart disease of native coronary artery without angina pectoris; K70.31 Alcoholic cirrhosis of liver with ascites; E87.6 Hypokalemia; H35.30 Unspecified macular degeneration; R65.20 Severe sepsis without septic shock; M54.12 Radiculopathy, cervical region; K70.11 Alcoholic hepatitis with ascites; F17.210 Nicotine dependence, cigarettes, uncomplicated; Z96.651 Presence of right artificial knee joint; F10.26 Alcohol dependence with alcohol-induced persisting amnestic disorder; R41.0 Disorientation, unspecified; K72.90 Hepatic failure, unspecified without coma; E66.9 Obesity, unspecified; Z79.01 Long term (current) use of anticoagulants; I25.2 Old myocardial infarction; Z79.899 Other long term (current) drug therapy; Z79.2 Long term (current) use of antibiotics; Z79.52 Long term (current) use of systemic steroids; Z79.51 Long term (current) use of inhaled steroids; Z90.49 Acquired absence of other specified parts of digestive tract; Z98.890 Other specified postprocedural states; Z86.79 Personal history of other diseases of the circulatory system; Z85.828 Personal history of other malignant neoplasm of skin
CPT/HCPCS: 36415; 49083; 51701; 70450; 70551; 71045; 74177; 76705; 80048; 80053; 80320; 81001; 82042; 82140; 82607; 82746; 82803; 82945; 82947; 83605; 83615; 83690; 83735; 83986; 84100; 84157; 84478; 85025; 85610; 85730; 86592; 87040; 87070; 87075; 87077; 87086; 87186; 87205; 87324; 87493; 89051; 92526; 92610; 93005; 93010; 94640; 94664; 94760; 94762; 97112; 97162; 97530; 99285-25; A9270; C1751; J0696; J1650; J2060; J2543; J3411; J3475; J3480; J7042; J7050; J7120; P9046; P9047; Q9967